=== PATIENT | female | born 1945 | race African-American/Black ===

== ENCOUNTER 2020-06-07 03:58 | Inpatient (IN) | payer OTHER ==
[~2020-06-07] VITALS: Ht 167.6 cm; Wt 80.5 kg
[2020-06-07] VITALS (8 sets, daily range): BP systolic 100–122; BP diastolic 43–65
--- NOTE | ~2020-06-07 | HC ---
[facility] [place] [address] CONSULTATION Name: FRANCOIS SIMS Room #: 216- ADM IN M.R.#: [id number] Admission: 06/07/20 Attend Phys: Reed Damon MD Discharge: Date of : 47 Report #: [id number] THIS REPORT FOR: cc: FREDDY HANNON MD Physician not on staff Jorge Pruitt MD ~ REASON FOR CONSULTATION: Acute kidney injury. REASON FOR PRESENTATION: Altered mental status. HISTORY OF PRESENT ILLNESS: This is obtained from the medical chart. The patient is not able to provide me with any history. The daughter brought the patient yesterday concerned about her mom's mental status. Apparently, the patient had been hospitalized in another facility about a month ago. The daughter was told that her mom had fluid overload. She spent some time in rehabilitation after that. Daughter describes similar symptoms like her prior hospitalization. She brought her to further evaluate her symptoms and she was found to have an elevated creatinine. Creatinine on arrival was 4.9. The patient carries chronic diagnosis of hypertension. She is maintained on anticoagulation for what seems to be AFib. She is also maintained on Celebrex. The patient currently is disoriented and not able to provide me with any history. She had some issues with hypotension on arrival. Creatinine has gone down from 4.9-2.9 as of this morning. PAST MEDICAL HISTORY: Reported from the medical charts: 1. Hypertension. 2. AFib. 3. Recent hospitalizations for fluid overload. REVIEW OF SYSTEMS: Unobtainable given the patient's current mental status. SOCIAL HISTORY: Unobtainable given the patient's current mental status. FAMILY HISTORY: Unobtainable given the patient's current mental status. ALLERGIES: None. LISTED MEDICATIONS: Listed amongst her medical conditions: 1. Celebrex. 2. Torsemide. 3. Metoprolol. 4. Xarelto. PHYSICAL EXAMINATION: GENERAL: She is disoriented to time, place, and person. [address] [address] CONSULTATION Name: FRANCOIS SIMS Room #: [facility] IN ..#: [id number] Admission: 06/07/20 Attend Phys: Reed Damon MD Discharge: Date of : 47 Report #: [id number] VITAL SIGNS: Temperature 36.6, pulse rate is 52, respiratory rate is 16, blood pressure is 118/54. HEAD AND NECK: No jugular venous distention. CHEST: Decreased air entry bilaterally. CARDIOVASCULAR: No rub detected. ABDOMEN: Soft, nontender. LOWER EXTREMITIES: No edema. LABORATORY DATA: Hemoglobin 9.5, platelets 91,000. Sodium 146, potassium 5.0, chloride is 116, carbon dioxide is 22, BUN is down from 97-71. Creatinine is down from 4.9-2.9. DIAGNOSTIC DATA: Head MRI revealed no evidence of acute issues with chronic changes. ASSESSMENT, IMPRESSION AND PLAN: 1. Acute kidney injury, multifactorial due to hypotension, nonsteroidal anti-inflammatory medications, diuresis, bradycardia. 2. Altered mental status. 3. The patient's creatinine is already on the improvement chart. Continue with IV fluid. 4. Reformulate her IV fluid. 5. Discontinue all offending agents. 6. Continue to watch volume status. 7. Continue to watch electrolytes and daily creatinine values. 8. No further NSAIDs. By: [id number] Jorge Pruitt MD /nt
[2020-06-07] MEDS ORDERED: CELEXA 20 MG TA20 MG PO (04:07)
[2020-06-07] MEDS ORDERED: CELECOXIB100 MG PO (04:08)
[2020-06-07] MEDS ORDERED: FERROUS SULFAT325 MG PO (04:08)
[2020-06-07] MEDS ORDERED: XARELTO15 MG PO (04:09)
[2020-06-07] MEDS ORDERED: DEMADEX20 MG PO (04:09)
[2020-06-07] MEDS ORDERED: TOPROL XL100 MG PO (04:10)
[2020-06-07] MEDS ORDERED: PROTONIX40 M4 (04:18)
--- NOTE | 2020-06-07 04:45 | NUR ---
MEDICATIONS RETURNED TO DAUGHTER
[2020-06-07 04:51] LABS: ABSOLUTE NEUTROPHILS 2.6 thou/uL (1.4-8.2); BASOPHILS 0.2 % (0.0-2.0); EOSINOPHILS 7.3 % (0.0-3.0); HEMATOCRIT 35.6 % (37.0-47.0); HEMOGLOBIN 11.4 gm/dL (12.0-15.0); LYMPHOCYTES 31.4 % (24.0-44.0); MCH 30.8 pg (26.0-34.0); MCHC 31.9 g/dL (28.0-37.0); MCV 96.6 fL (80.0-100.0); MONOCYTES 11.6 % (1.0-8.0); PLATELET COUNT 133 thou/uL (150-400); POLYS 49.5 % (36.0-66.0); RBC 3.69 mil/uL (4.20-5.00); RDW 16.2 % (10.5-14.5); WBC 5.2 thou/uL (4.0-11.0)
[2020-06-07 05:00] LABS: ANION GAP 8 mmol/L (7-16); BUN 97 mg/dL (7-18); CALCIUM 9.2 mg/dL (8.5-10.1); CHLORIDE 109 mmol/L (98-107); CO2 25 mmol/L (21-32); CREATININE 4.9 mg/dL (0.6-1.0); GLUCOSE 101 mg/dL (74-106); SODIUM 142 mmol/L (136-145)
[2020-06-07 05:06] LABS: ALBUMIN 2.7 g/dL (3.4-5.0); DIRECT BILIRUBIN 0.2 mg/dL (<0.1-0.2); LIPASE 637 U/L (73-393); SGOT 34 U/L (15-37); SGPT 21 U/L (30-65); TOTAL BILIRUBIN 0.5 mg/dL (0.2-1.0); TOTAL PROTEIN 6.7 g/dL (6.4-8.2); TROPONIN-I <0.06 ng/mL (<0.06)
[2020-06-07 05:12] LABS: URINE BILIRUBIN NEGATIVE (Negative); URINE BLOOD NEGATIVE (Negative); URINE CLARITY SL CLOUDY; URINE COLOR YELLOW; URINE GLUCOSE-RANDOM* NEGATIVE (Negative); URINE KETONES NEGATIVE (Negative); URINE LEUKOCYTES-REFLEX TRACE (Negative); URINE NITRITE-REFLEX NEGATIVE (Negative); URINE PROTEIN (DIPSTICK) NEGATIVE (Negative); URINE SPECIFIC GRAVITY 1.015 (1.005-1.035); URINE UROBILINOGEN 0.2 E.U./dl (0.2-1.0)
--- NOTE | 2020-06-07 07:13 | NUR ---
Called to give report, trouble locater reported all RNs are in pt's rooms getting am report Tried again, no answer
--- NOTE | 2020-06-07 07:45 | EKG ---
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1945 Requested By: Aurea Shabazz Order Number: [id number] MD: Michael Cummins Measurements Intervals [place] Rate: 59 P: 18 NE: 177 QRS: -47 QRSD: 85 T: 26 QT: 452 QTc: 448 Interpretive Statements Sinus rhythm Inferior infarct, old Poor R wave progression Baseline wander in lead(s) V3 No previous ECG available for comparison Electronically Signed On 06-07-2020 7:45:42 HIV/AIDS CARE NURSE by Michael Cummins [email or web address] <ELECTRONICALLY SIGNED> By: Michael Cummins MD, FAC 06/07/20 0745 0407 0407 Michael Cummins MD, [facility] /EPI
[2020-06-07 07:58] LABS: AMP/METHAMP Negative (Negative); BARBITURATES Negative (Negative); BENZODIAZEPINES Negative (Negative); COCAINE Negative (Negative); METHADONE Negative (Negative); OPIATES Negative (Negative); PCP Negative (Negative)
[2020-06-07 09:24] LABS: TSH 0.885 uIU/mL (0.358-3.740)
--- NOTE | 2020-06-07 11:42 | NUR ---
ASSUMED CARE AT 830. PT IS AX0 X 1. PT ONLY KNOWS SELF. PT CAN LISTEN TO COMMANDS BUT NEEDS HELP. PT IS ON BEDPAN CURRENTLY AND HAVING LIQUID DIARRHEA AFTER GIVING LAXATIVE MEDICATION. PT HAS SODIUM CHLORIDE GOING ON R. AC IV AT 75 ML/ HR. PT IS TOLERATING WELL. FALL PRECAUTION. CALL LIGHT WITHIN REACH. FAXED MEDICAL RECORDS FORM TO [facility] TO RECEIVE REPORTS. STILL WAITING FOR RECORDS. DIET: HEART HEALTHY. VSS. PT COMPLAINS OF RIGHT LEG PAIN BUT DENIES NAUSEA, VOMITTING, AND SOA. SPOKE TO DAUGHTER AND SHE HELPED WITH PT PAST MEDICAL HISTORY. PT HAS WOUND ON BUTTOCK UPPER CUT. WOUND HAS BEEN DOCUMENTED AND CONSULT ORDER FOR WOUND COORDINATOR. PT DOES NOT HAVE MUCH OF APPETITE WELL.
--- NOTE | 2020-06-07 13:16 | NUR ---
ASSESSMENT: CM REVIEWED CHART AND SPOKE WITH PATIENTS DAUGHTER JONAS. PT WAS ADMITTED DUE TO ACUTE ON CHRONIC RENAL FAILURE/ENCEPHALOPATHY. PER PTS DAUGHTER PT WAS JUST HOSPITALIZED 2WKS AGO IN [place], [place] FOR FLUID OVERLOAD AND THEN WENT TO [facility] IN [facility]. PT THEN WAS DISCHARGED THIS PAST FRIDAY AND WENT HOME WITH HER DAUGHTER JONAS. SHE REPORTS HOME HEALTH WAS NOT SET UP. PT HAS A WALKER SHE USES FOR AMBULATION. PT/OT WILL EVALUATE PATIENT TO HELP ASSIST WITH DISCHARGE PLANNING. EEG WAS ALSO ORDERED AND WOUND CARE HAS BEEN CONSULTED. CM WILL CONTINUE TO FOLLOW TO ASSIST NEEDED.
--- NOTE | 2020-06-07 16:42 | NUR ---
ASSUMED CARE AT 1415 ALER AND ORIENTD, BUT FOGETFUL. NIHS 2, VSS AND AFEBRILE. HEPARIN INITIATED PER ORDERS, AND WHITNEY CONTNUE WITH POC.
[2020-06-08] VITALS (8 sets, daily range): BP systolic 107–144; BP diastolic 46–66
[2020-06-08 05:47] LABS: ABSOLUTE NEUTROPHILS 1.8 thou/uL (1.4-8.2); BASOPHILS 0.3 % (0.0-2.0); EOSINOPHILS 7.3 % (0.0-3.0); HEMATOCRIT 29.1 % (37.0-47.0); HEMOGLOBIN 9.5 gm/dL (12.0-15.0); LYMPHOCYTES 36.7 % (24.0-44.0); MCH 31.7 pg (26.0-34.0); MCHC 32.6 g/dL (28.0-37.0); MCV 97.3 fL (80.0-100.0); MONOCYTES 10.7 % (1.0-8.0); PLATELET COUNT 91 thou/uL (150-400); RBC 2.99 mil/uL (4.20-5.00); RDW 16.5 % (10.5-14.5); WBC 3.9 thou/uL (4.0-11.0)
[2020-06-08 05:55] LABS: ALBUMIN 2.2 g/dL (3.4-5.0); CALCIUM 8.6 mg/dL (8.5-10.1); MAGNESIUM 2.4 mg/dL (1.8-2.4)
[2020-06-08 06:08] LABS: CREATININE 2.9 mg/dL (0.6-1.0)
[2020-06-08] MEDS ORDERED: SPIRONOLACTONE50 MG PO (15:45)
[2020-06-08] MEDS ORDERED: XARELTO15 MG PO (15:46)
[2020-06-09 03:31] VITALS: BP 111/42
[2020-06-09 06:10] LABS: ALBUMIN 2.2 g/dL (3.4-5.0); CALCIUM 8.7 mg/dL (8.5-10.1); CREATININE 2.1 mg/dL (0.6-1.0); PHOSPHORUS 3.4 mg/dL (2.5-4.9); POTASSIUM 4.5 mmol/L (3.5-5.1)
[2020-06-09 07:55] VITALS: BP 120/77
[2020-06-09 09:33] LABS: HEMATOCRIT 29.4 % (37.0-47.0); HEMOGLOBIN 9.5 gm/dL (12.0-15.0); MCH 31.5 pg (26.0-34.0); MCHC 32.2 g/dL (28.0-37.0); MCV 97.8 fL (80.0-100.0); RBC 3.01 mil/uL (4.20-5.00); RDW 16.8 % (10.5-14.5); WBC 3.4 thou/uL (4.0-11.0)
--- NOTE | 2020-06-09 10:43 | NUR ---
WOUND CARE F/U; THE WOUND IS STABLE AT THIS TIME AND NO CHANGES ARE NECCESSARY. WE WILL CONTINUE TO F/U WITH THIS PATIENT.
[2020-06-09 11:10] VITALS: BP 132/63
[2020-06-09 12:48] LABS: INR 1.1; PROTIME 11.7 Seconds (9.3-11.4)
[2020-06-09 12:52] LABS: APTT 166.2 Seconds (24.5-32.8)
--- NOTE | 2020-06-09 12:56 | EEG ---
[facility] [place] [address] ELECTROENCEPHALOGRAM Name: AWILDA SIMSLETICIA Room #: 216-[facility] IN M.R.#: [id number] Admission: 06/07/20 Attend Phys: Reed Damon MD Discharge: Date of : 47 Report #: [id number] THIS REPORT FOR: //name// CC: FREDDY Damon Physician staff DATE OF SERVICE: 06/07/2020 This patient is being evaluated for altered mental status and for the possibility of seizures. The EEG is masked by a lot of muscle artifact as the patient is unable to cooperate. That makes the interpretation of this EEG extremely difficult. The best I can tell the patient's background activity is about 15 microvolt, sometime it looks like it goes somewhat lower than that and that may be drowsiness. Photic stimulation is unremarkable. IMPRESSION: Suboptimal EEG as the patient is not able to cooperate and there is a lot of artifact. The best I can tell, it does not appear to be showing any epileptiform activity. It does show slowing on both sides. That is a nonspecific finding, which can occur with encephalopathy, effect of psychotropic medication, dementia, etc. Clinical correlation is recommended. <ELECTRONICALLY SIGNED> By: Jean Claude Marrero MD 06/09/20 1256 1807 1818 Jean Claude Marrero MD /nt
[2020-06-09 16:25] VITALS: BP 111/44
--- NOTE | 2020-06-09 17:47 | NUR ---
Visited with pt at bedside. She indicates she feels weak and would be open to hh f/u at dc at her dtr's home. She may be open to SNF stay again but wants to discuss with her dtr.Dtr here visiting this evening and they will discuss and f/u with cm on their preference.
[2020-06-09 18:00] VITALS: BP 126/60
--- NOTE | 2020-06-09 19:24 | NUR ---
PT TRANSFERED TO UNIT AT 1814. RECEIVED REPORT FROM MIRA ROSAS PRIOR TO TRANSFER. DAUGHTER AT THE BEDSIDE AT THIS TIME. PT ASSISTED INTO BED. ADMISSION VIATL SIGNS COMPLETED. PT REPORTS PAIN AND WAS ADMINISTERED TYLENOL, REPORTED NO RELIEF AT CHANGE OF SHIFT. FALL PRECAUTIONS IN PLACE AND NURSING WILL CONTINUE TO MONITOR.
[2020-06-10 02:45] VITALS: BP 126/66
--- NOTE | 2020-06-10 03:14 | NUR ---
ASSUMED PT CARE AT SHIFT CHANGE. PT IS ALERT AND ORIENTED X4. VSS. PT HAS A SLOW RESPONSE. PT IS INCONTINENT B&B BUT IT SEEMS TO BE BY CHOICE. PT STATES THAT SHE WOULD PREFER NOT TO USE THE BEDPAN/ BSC. COMPLETE BED CHANGE DONE. PT IS ON ROOM AIR. PERFORMED A WOUND CLEANING ON HER BOTTOM IN BETWEEN HER BUTTOCKS. APPLIED ZGAURD. PT STATES THAT HER KNEES HURT AND PAIN IS ALWAYS THERE. FREQ ROUNDS. WILL CONTINUE TO MONITOR.
[2020-06-10 06:07] LABS: ALBUMIN 2.2 g/dL (3.4-5.0); CALCIUM 8.6 mg/dL (8.5-10.1); CREATININE 1.7 mg/dL (0.6-1.0); PHOSPHORUS 2.8 mg/dL (2.5-4.9); POTASSIUM 4.9 mmol/L (3.5-5.1)
[2020-06-10 06:14] LABS: % SATURATION 32 % (20-39); IRON 66 ug/dL (50-170); TIBC 209 ug/dL (250-450)
[2020-06-10 08:16] VITALS: BP 139/66
[2020-06-10 09:33] VITALS: BP 188/113
--- NOTE | 2020-06-10 10:43 | NUR ---
ASSUMED CARE AT 0700. PT IS A&O X4 BUT SLOW OF SPEAKING. IV ON LEFT A.C IS SHOWING NO SIGNS OF REDNESS AND SWELLING OR DISCOMFORT. IV IS NOT SALINE LOCK AND RUNNING D5 0.2 NS AT 125 ML/HR. SKIN IS INTACT AND PT IS READJUSTED EVERY 2 HOURS IN BED. PT IS CURRENTLY INCONTINENT SOMETIMES BUT IS ABLE TO USE CALL LIGHT TO SAY THAT SHE HAS TO USE THE RESTROOM. PT COMPLAINS OF FATIGUE DUE TO INCONTINENCE LAST NIGHT. FALL PRECAUTION. CALL LIGHT WITHIN REACH. PT DENIES OF SOA AND DIZZINESS.
[2020-06-10 15:40] VITALS: BP 140/67
--- NOTE | 2020-06-10 16:18 | NUR ---
pt was given zguard to coccyx wound. pt is sad that she is still wetting the bed. I have talked to pt and reassure pt that it is okay and to use the call light and we will help her.
[2020-06-10 19:20] VITALS: BP 131/60
--- NOTE | 2020-06-11 00:12 | NUR ---
PATIENT ALERT AND ORIENTED X4. DAUGHTER AT BEDSIDE AT BEGINNING OF SHIFT. PATIENT COOPERATIVE WITH CARE. C/O PAIN AND GIVEN TYLENOL WITH GOOD RESULTS. ALSO GIVEN MELATONIN FOR ASSIST WITH SLEEP WHICH HAS BEEN EFFECTIVE. IVF INFUSING W/O COMPLICATION. EXTERNAL CATHETER WORKING OFF AND ON DUE TO POSITION. WILL MONITOR.
[2020-06-11 07:09] VITALS: BP 135/65
--- NOTE | 2020-06-11 09:18 | NUR ---
ASSUMED CARE AT 0700. PT IS A&O X4 BUT IS SOFT SPOKEN. PT FELT BAD TODAY BECAUSE SHE DOES NOT LIKE WETTING THE BED. I HELPED REASSSURE PT THAT IT IS OKAY AND WE ARE HERE TO HELP. PT TOLD ME THIS AM THAT SHE HAS BEEN SPITTING/COUGHING UP BLOOD AND SHOWED ME. I HAVE SPOKEN WITH LOUISA AND LOUISA HOLDED ASPIRIN AND XARLETO UNTIL FURTHER NOTICE DUE TO THE COUGHING UP BLOOD. LOUISA HAS ORDERED A CHEST X RAY AND CURRENTLY PENDING WITH RESULTS. VSS. ADMINISTERED Z GUARD TO PT WOUND. IV L. AC IS INTACT AND SHOWS NO SIGNS OF REDNESS OR SWELLING. CALL LIGHT WITHIN REACH. FALL PRECAUTION. SHE CURRENTLY HAS D5 0.22 RUNNING THROUGH IV AT 125 ML/HR. PT DENIES ANY PAIN, SOA, DIZZINESS, N/V/D. WILL CONTINUE TO MONITOR. WE HAVE PUT A EXTERNAL CATHETER ON PT BUT IT DID NOT WORK. WE HAVE TRIED 2 TIMES AND IT DID NOT WORK.
[2020-06-11 09:54] LABS: HEMATOCRIT 29.3 % (37.0-47.0); HEMOGLOBIN 9.5 gm/dL (12.0-15.0); MCH 31.4 pg (26.0-34.0); MCHC 32.3 g/dL (28.0-37.0); MCV 97.3 fL (80.0-100.0); RBC 3.01 mil/uL (4.20-5.00); RDW 16.5 % (10.5-14.5); WBC 2.5 thou/uL (4.0-11.0)
[2020-06-11 10:14] LABS: ALBUMIN 2.2 g/dL (3.4-5.0); CALCIUM 8.7 mg/dL (8.5-10.1); CREATININE 1.5 mg/dL (0.6-1.0); MAGNESIUM 1.7 mg/dL (1.8-2.4); POTASSIUM 4.7 mmol/L (3.5-5.1); TOTAL BILIRUBIN 0.4 mg/dL (0.2-1.0); TOTAL PROTEIN 5.7 g/dL (6.4-8.2)
[2020-06-11 11:53] LABS: ABSOLUTE NEUTROPHILS 1.4 thou/uL (1.4-8.2)
[2020-06-11 11:55] LABS: ANISOCYTOSIS 1+
[2020-06-11 12:26] LABS: PLATELET COUNT 73 thou/uL (150-400)
[2020-06-11 15:22] VITALS: BP 127/62
[2020-06-11 19:03] VITALS: BP 123/59
[2020-06-12 04:12] VITALS: BP 106/45
[2020-06-12 07:15] VITALS: BP 120/52
--- NOTE | 2020-06-12 08:11 | HC ---
[facility] [place] [address] CONSULTATION Name: FRANCOIS SIMS Room #: 437-P ADM IN M.R.#: [id number] Admission: 06/07/20 Attend Phys: Reed Damon MD Discharge: Date of : 47 Report #: [id number] THIS REPORT FOR: cc: FREDDY HANNON MD Physician not on staff Blu Frausto MD ~ REASON FOR CONSULTATION: Pancytopenia. HISTORY OF PRESENT ILLNESS: The patient is a 74-year-old female who is a questionable historian and also reviewed records from [facility] in [place], [place]. Chart mentions the patient was brought to the hospital because of possible fluid overload and was thought to have some renal troubles. It sounds like she according them had been in the hospital, which agrees up until about 4 weeks ago, then a first visit at a rehab hospital until about a week ago. Per the daughter, it should like the patient has not had any recent fevers, chills, shortness of air, common cough, nausea, vomiting, diarrhea, melena, hematochezia at least since a week ago. The patient was thought to be a little more confused than usual. PAST MEDICAL HISTORY: After reviewing the chart is notable for history of hepatitis C with cirrhosis, hypertension, atrial fibrillation, chronic kidney disease, obstructive sleep apnea and obesity and also note that at the outside hospital a month ago, the patient had a platelet count of 97 with a white count of 4.8, hemoglobin of 10 with an MCV of 100. CURRENT MEDICATIONS: Include cyanocobalamin 1000 mcg daily p.o., diclofenac 1 gram t.i.d. topically, heparin per protocol, Tylenol p.r.n., IV fluids, folic acid 1 mg daily, aspirin 81 mg daily, pantoprazole 40 daily, heparin on a drip, rivaroxaban 15 mg with dinner once a day, MiraLax daily, nitroglycerin tablets p.r.n., Zofran p.r.n. The patient receiving vitamin B12 shots IM x 5 doses. 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 Currently lives with her daughter in [place], [place], not currently smoking or drinking alcohol or any street drugs. PHYSICAL EXAMINATION: GENERAL: The patient appears her stated age. She is a female in a medical, surgical bed, slightly fuzzy and answering questions, but pleasant. VITAL SIGNS: Recent height is 5 feet 6 inches, 167.6 cm; weight one place 200 pounds, another place 177.5 pounds that would be 90.7 or 80.5 kilograms. Recent vitals include a blood pressure 111/42, O2 sat 100%, respirations 18, pulse 55, temperature recently afebrile at 97.7, looks like she has been afebrile since being here, though [place] a [place] 99[place] [address] CONSULTATION Name: FRANCOIS SIMS Room #: 437-P [facility] IN M.R.#: [id number] Admission: 06/07/20 Attend Phys: Reed Damon MD Discharge: Date of : 47 Report #: [id number] HEENT: Face appears to be symmetrical. NEUROLOGIC: Speech and thought pattern appear to be normal, but slightly slow to this observer, but this is first time examining her. LUNGS: Appear to be clear with some very soft rhonchi centrally that clear with clear in her throat. LYMPHATICS: No enlarged lymph nodes in the supraclavicular, cervical, axillary or inguinal region. ABDOMEN: Slightly obese, does not appear to be tender. No masses noted. EXTREMITIES: May have some trace edema. LABORATORY DATA: Here at [facility] notable for BUN of 48, creatinine 2.1. Liver functions normal. Alkaline phosphatase 68. Note, total bilirubin was 0.5. Ammonia level was 131, albumin 2.2. Alcohol less than 10. Drug screen negative. White count 3.9, hemoglobin 9.5, MCV 97.3, platelet count 91. Differential nonacute. Percentage monocytes slightly elevated. TSH 0.885. Folate 17, normal. Vitamin B12 117, low. 25-hydroxy vitamin D 25.9, low. UA nonacute. IMAGING: This admit includes an MRI of the head that is mild generalized parenchymal volume loss and moderate chronic small vessel ischemic changes without acute intracranial abnormality. Ultrasound renal showed simple cyst arising from the left kidney. Kidneys are small in size consistent with chronic medical renal disease, no hydronephrosis or obstruction. ASSESSMENT AND PLAN: 1. Cytopenia, chronic in nature, may be related to B12. Agree with replacement. We will also check iron panel. Thrombocytopenia may be partly related to underlying liver disease. Note that outside hospital with a CT chest on 05/06/2020 mentioned a nodule on liver. There is also an ultrasound of abdomen on 05/07/2020 at the outside hospital mentioned coarse nodular architecture of the liver. 2. B12 deficiency, level was 117. The patient is receiving subcutaneous B12 and oral, should continue lifelong. 3. History report of hepatitis C and cirrhosis. Defer to others, but this may be contributing to her thrombocytopenia. 4. Encephalopathy, may be related to liver dysfunction. Note, ammonia was elevated. Defer use of lactulose to others. 5. Atrial fibrillation. Defer rate management to others. 6. Hypertension. Meds per others. 7. Chronic kidney disease, monitored medication use and weight and fluid, but mostly per others. [facility] [address] [place] [address] CONSULTATION Name: FRANCOIS SIMS Room #: 437-P ADM IN M.R.#: [id number] Admission: 06/07/20 Attend Phys: Reed Damon MD Discharge: Date of : 47 Report #: [id number] 8. History of obstructive sleep apnea on the chart. Management per others. 9. Obesity. Management per others. <ELECTRONICALLY SIGNED> By: Blu Frausto MD 06/12/20 0811 0816 0120 Blu Frausto MD /nt
--- NOTE | 2020-06-12 09:19 | NUR ---
WOUND F/U; THE PATIENTS COCCYX IS HEALED. THE PATIENT CAN STAND AND TURN HERSELF IN BED. THE PATIENTS DIETARY INTAKE IS WNL. THE PATIENT IS ABLE TO UNDERSTAND AND ANSWERS APPROPRIATLY WELL ASKING QUESTIONS. RECOMMENDATIONS; 1-WOUND CARE WILL SIGN OFF 2-CONTINUE CURRENT ORDERS DISCUSSED WITH RN
--- NOTE | 2020-06-12 10:48 | NUR ---
ASSUMED CARE AT 0700. PT IS A&O X4. PT IS DOING WELL WITH USING EXTERNAL FEMALE CATHETHER. IV ON R. AC SHOWS NO SIGNS OF SWELLING OR REDNESS. PT WILL BE DOING A COVID TESTING. WILL CONTINUE TO MONITOR I&O. PT IS HAVING ADEQUATE NUTRITION. VSS. PT DENIES ANY PAIN, SOA, DIZZINESS, N/V. FALL PRECAUTION. CALL LIGHT WITHIN REACH. SCD HOSE ARE IN PLACE. STILL CURRENTLY HOLDING ASIPIRIN AND XARELTO DUE TO DOCTOR ORDERS.
[2020-06-12] MEDS ORDERED: VITAMIN D325 MC1 PO (10:59)
[2020-06-12] MEDS ORDERED: FOLIC ACID1 MG PO (10:59)
[2020-06-12] MEDS ORDERED: B-12500 MCG PO (10:59)
[2020-06-12] MEDS ORDERED: LACTULOSE20 GM/30 M PO (10:59)
--- NOTE | 2020-06-12 14:04 | NUR ---
ON-GOING ASSESSMENT: TWILA REVIEWED CHART AND SPOKE WITH PTS DAUGHTER THIS AM TO INFORM HER ON RECOMMENDATION FOR SNF. SHE REPORTS SHE WILL REVIEW SNF LIST BUT WANTS SOMEWHERE IN AND NOT [place] LIKE THE OTHER SNF SHE WAS AT. CM LEFT A SNF LIST AT THE BEDSIDE FOR DAUGHTER TO REVIEW SHE STATES SHE WAS COMING TO VISIT PT. TWILA AGAIN REACHED OUT TO DAUGHTER AROUND 1400 WHO REPORTS SHE STILL HAS NOT HAD A CHANCE TO REVIEW BUT IT COMING NOW. CM AGAIN DISCUSSED PT IS MEDICALLY STABLE TO DISCHARGE TO SNF PENDING PLACEMENT AND RESULT OF COVID TESTING. DAUGHTER REPORTS SHE WILL REVIEW LIST AND GET BACK TO CM. CM WILL CONTINUE TO FOLLOW.
[2020-06-12 15:34] VITALS: BP 121/47
[2020-06-12 20:29] VITALS: BP 101/43
[2020-06-13 03:59] VITALS: BP 116/51
--- NOTE | 2020-06-13 04:40 | NUR ---
ASSESSED PT. A&OX4 UP WITH ASSISTX1 TO BSC. C/O EXTREMITY PAIN. DICLOFENAC CREAM APPLIED. IV INTACT AND SL. MELATONIN GIVEN FOR SLEEP. FALL PREC IN PLACE AND CALL LIGHT AT REACH WILL CONT TO MONITOR.
[2020-06-13 08:08] VITALS: BP 116/47
--- NOTE | 2020-06-13 08:36 | NUR ---
ON-GOING ASSESSMENT: TWILA REVIEWED CHART AND SPOKE WITH PTS DAUGHTER JONAS ABOUT SNF OPTIONS. SHE WANTED REFERRAL SENT TO [facility]. TWILA REACHED OUT TO THE LIASON AT [facility] WHO REPORTS THEY ARE NOT ACCEPTING NEW ADMISSIONS AT THIS TIME. TWILA REACHED OUT TO DAUGHTER AGAIN REQUESTING ANOTHER SNF OPTION.
--- NOTE | 2020-06-13 13:25 | NUR ---
ASSUMED PT CARE THIS AM. PT VSS, A&OX4. PT COMPLAINS OF NO PAIN. PT COOPERATIVE WITH STAFF, CALLS APPROPRIATELY WHEN NEEDED. PT TAKING MEDS WITH NO COMPLAINTS. PT ON ZAHRA MATTRESS. PT UP TO BEDSIDE COMMODE.
[2020-06-13 16:24] VITALS: BP 120/50
[2020-06-13 20:27] VITALS: BP 128/66
--- NOTE | 2020-06-14 05:15 | NUR ---
PT IS ALERT AND ORIENTED. SHE CALLS FOR ASSISTANCE. SHE REQUIRES EXTRA TIME TO GET UP TO BSC.SHE IS VOIDING OKAY AND HAD A BM THIS SHIFT.AFEBRILE.SHE HAS A CONGESTED COUGH. SHE DENIES SOA OR SORE THROAT. REMAINS AFEBRILE.FALL PREC IN PLACE. WILL CONTINUE WITH POC.
[2020-06-14 06:26] VITALS: BP 118/69
[2020-06-14 07:41] VITALS: BP 128/45
--- NOTE | 2020-06-14 09:47 | NUR ---
ASSUMED PT CARE THIS AM. PT VSS, A&OX4. PT HAS NO COMPLAINTS OF PAIN. NEW DICLOFENAC OINTMENT ORDERED NONE IS IN ROOM OR IN PATIENTS BIN IN [facility]. PT REPORTED THAT SHE DOES NOT KNOW WHERE IT WENT. IV PATENT, SALINE LOCKED. PT REPORTING A NON-PRODUCTIVE COUGH. ON ZAHRA MATTRESS. PT TOOK MEDS WITHOUT COMPLAINT. FLUIDS ENCOURAGED.
--- NOTE | 2020-06-14 14:17 | NUR ---
ON-GOING ASSESSMENT: PT IS MEDICALLY STABLE TO DISCHARGE TO SNF. TWILA SPOKE WITH LIASON FROM [facility] WHERE DAUGHTER WANTS PT TO GO AND THEY CAN ACCEPT HER BUT WILL NOT HAVE A BED OPEN UNTIL FRIDAY. CM DISCUSSED THIS WITH DAUGHTER BUT PT IS MEDICALLY STABLE TO DISCHARGE AND ASKED HER TO REVIEW OTHER FACILITIES. REFERRAL WAS SENT TO [facility] WHO CAN ACCEPT BUT AFTER DAUGHTER FURTHER REVIEWED SHE DOES NOT WANT PT TO GO THERE. TWILA DISCUSSED WITH ATTENDING WELL CM DIRECTOR, DAUGHTER REQUEST SHE WAIT UNTIL FRIDAY TO DISCHARGE TO [facility] SHE IS ONLY COMFORTABLE WITH THIS SNF. PT WILL DISCHARGE FRIDAY TO [facility]. ON FRIDAY CONTACT SEGUNDO AUSTIN LIASON AT [phone] AND SHE WILL FACILITATE DISCHARGE WELL ARRANGTING TRAENSPORTATION AND PROVIDE THE FAX NUMBER FOR ORDERS. CHART COPY WILL NEED TO BE SENT WITH PATIENT. CM FAXED FACILITY HER NEGATIVE COVID TEST. CONTACT JONAS HER DAUGHTER AT TIME OF DISCHARGE. TWILA SPOKE WITH MESSI AT [phone] WHO REPORTS FACILITY SHOULD NOT NEED AUTH PRIOR TO ACCEPTING THERE IS A WAIVER DUE TO PANDEMIC. CM NOTIFIED LIASON IN ADMISSION. PLAN IS FRIDAY TO [facility] SNF.
--- NOTE | 2020-06-14 15:32 | NUR ---
ON-GOING ASSESSMENT: PT IS MEDICALLY STABLE TO DISCHARGE TO SNF. CM SPOKE WITH LIASON FROM [facility] WHERE DAUGHTER WANTS PT TO GO AND THEY CAN ACCEPT HER BUT WILL NOT HAVE A BED OPEN UNTIL FRIDAY. CM DISCUSSED THIS WITH DAUGHTER BUT PT IS MEDICALLY STABLE TO DISCHARGE AND ASKED HER TO REVIEW OTHER FACILITIES. REFERRAL WAS SENT TO [facility] WHO CAN ACCEPT BUT AFTER DAUGHTER FURTHER REVIEWED SHE DOES NOT WANT PT TO GO THERE. CM DISCUSSED WITH ATTENDING WELL CM DIRECTOR, DAUGHTER REQUEST SHE WAIT UNTIL FRIDAY TO DISCHARGE TO [facility] SHE IS ONLY COMFORTABLE WITH THIS SNF. PT WILL DISCHARGE FRIDAY TO [facility]. CM PROVDED [facility] UPDATED CLINICAL INCLUDING PT/OT EVALS AND PROGRESS NOTES TO OBTAIN AUTH FOR FRIDAY. ON FRIDAY CONTACT SEGUNDO AUSTIN LIASON AT [phone] AND SHE WILL FACILITATE DISCHARGE WELL ARRANGING TRAENSPORTATION AND PROVIDE THE FAX NUMBER FOR ORDERS WHEN SHE HAS AUTH AND IS NOTIFIED OF DISCHARGE BY [facility]. CHART COPY WILL NEED TO BE SENT WITH PATIENT. CM FAXED FACILITY HER NEGATIVE COVID TEST. CONTACT JONAS HER DAUGHTER AT TIME OF DISCHARGE.
[2020-06-14 16:44] VITALS: BP 121/50
[2020-06-14 20:03] VITALS: BP 135/63
--- NOTE | 2020-06-15 01:27 | NUR ---
ASSUMED PT CARE AT SHIFT CHANGE. A&OX4. VSS. PT IS IN THE CHAIR AT SHIFT CHANGE. PT IS A SBA WITH THE GAITBELT AND THE WALKER. APPLIED THE TOPICAL CREAM TO HER KNEES SCHEDULED. SHE STATES THAT SHE HAS GOTTEN RELIEF FROM THIS. PT TAKES SCHEDULED MEDICAITON. PT HAS TWO IV - ON IN THE RIGHT AC AND THE RIGHT FOREARM. PT IS LOOKING FORWARD TO DISCHARGING. PT DOES NOT COMPLAIN OF ANY PAIN. PT HAD A BM TODAY. HOURLY ROUNDS PERFORMED. WILL CONTINUE TO MONITOR.
[2020-06-15 05:53] LABS: HEMATOCRIT 26.8 % (37.0-47.0); HEMOGLOBIN 8.8 gm/dL (12.0-15.0); MCH 31.6 pg (26.0-34.0); MCHC 32.6 g/dL (28.0-37.0); MCV 96.8 fL (80.0-100.0); PLATELET COUNT 73 thou/uL (150-400); RBC 2.77 mil/uL (4.20-5.00); RDW 16.2 % (10.5-14.5); WBC 3.3 thou/uL (4.0-11.0)
[2020-06-15 05:58] LABS: CALCIUM 9.1 mg/dL (8.5-10.1); CREATININE 1.5 mg/dL (0.6-1.0); POTASSIUM 4.6 mmol/L (3.5-5.1)
[2020-06-15 06:22] VITALS: BP 133/64
[2020-06-15 07:45] VITALS: BP 138/71
[2020-06-15 09:57] LABS: ABSOLUTE NEUTROPHILS 1.5 thou/uL (1.4-8.2); PLATELET ESTIMATE DECREASED
--- NOTE | 2020-06-15 14:23 | NUR ---
ASSUMED CARE AT 0700. PATIENT IS ALERT AND ORIENTED X4. PATIENT BARRERA'S, MOTORCYCLE FABRICATOR ARE EQUAL. LUNGS ARE CLEAR. ABD IS SOFT WITH BSX4. PATIENT IS SBA TO BSC. PATIENT HAS S.L. IN HER RIGHT AC. AND FORARM. PATIENT HAS NEGATIVE COVID ON CHART. PLAN D/C FOR PLACEMENT ON FRIDAY. FALL AND SAFETY PROTOCOLS IN PLACE. DENIES PAIN. CONTINUES TO PROGRESS TOWARDS D/C GOALS. WILL CONTINUE TO MONITER.
[2020-06-15 15:20] VITALS: BP 138/58
[2020-06-15 21:25] VITALS: BP 116/62
[2020-06-16 04:57] VITALS: BP 127/68
--- NOTE | 2020-06-16 05:03 | NUR ---
PATIENT ALERT AND ORIENTED X4. UP IN CHAIR AT CHANGE OF SHIFT. DENIES PAIN. HOWEVER, C/O COUGH AND WANTS CEPACOL DROPS. SMALL BM DURING THE NIGHT. COOPERATIVE WITH CARE. DENIES PAIN. RESTING QUIETLY WILL MONITOR.
[2020-06-16 09:15] VITALS: BP 127/62
[2020-06-16] MEDS ORDERED: XIFAXAN550 MG PO (10:21)
[2020-06-16] MEDS ORDERED: IPRAT-ALBUT 0.5-3 ML INH (10:21)
[2020-06-16] MEDS ORDERED: VOLTAREN GEL 1100 G1 TOP (10:21)
[2020-06-16] MEDS ORDERED: COLACE100 MG PO (10:21)
[2020-06-16] MEDS ORDERED: METOPROLOL TART25 MG PO (10:21)
--- NOTE | 2020-06-16 10:47 | NUR ---
ASSUMED CARE AT 0700. PT IS A&0X4. IV ON RIGHT FA IS INTACT AND SHOWS NO SIGNS OF SWELLING OR REDNESS. Z GUARD WAS APPLIED ON CEASE OF UPPER BUTTOCK. FALL PRECAUTION. CALL LIGHT WITHIN REACH. GREAT APPETITE AFTER CUSTOMERIZING FOOD ORDERS. VSS. RENAL DIET. PT DENIES ANY PAIN, SOA, VOMITTING, NAUSEA, DIARRHEA. RA.
--- NOTE | 2020-06-16 12:06 | NUR ---
CM REVIEWED CAHRT AND SPOKE WITH CARE TEAM. IT WAS INDICATED THAT PT WAS MEDICALLY STABLE TO DC TO [facility] THIS DAY. DC DOOR REPAIRMAN CONTACTED TONY AT [phone]. IT WAS INDICATED THAT THE FACILITY DIDN'T HAVE AN OPEN BED TO ACCEPT PT THIS DAY AFTER ALL. DC DOOR REPAIRMAN WAITIGN TO HEAR IF THEY WILL BE ABLE TO ACCEPT OVER THE WEEKEND. CHART COPY ORDERED. FOLLOW UP PARESH ERICISON AT FOR UPDATES ON ADMISSION OVER WEEKEND. CM NOTIFIED PHYSICIAN. CONTACT JONAS HER DAUGHTER AT TIME OF DISCHARGE.
--- NOTE | 2020-06-16 12:50 | NUR ---
PT WAS TO DC TODAY TO [facility] BUT THEY DO NOT HAVE BED AVAILABLE BUT WILL HAVE ONE TOMORROW. DC ORDERS/SUMMARY ALREADY FAXED TO FACILITY SPOKE WITH SEGUNDO IN ADM SHE WILL SET UP TRANSPORT CALL [phone] AND TO GIVE REPORT.
[2020-06-16 15:54] VITALS: BP 129/50
--- NOTE | 2020-06-16 16:50 | NUR ---
assumed care at 1610. pt is a&o 1-2. pt can only answer with yes or no but mainly yes for anything. She could not answer the new admit paperwork nor sign the consents form. pt says " yes but wouldn't hold the pen to actually sign the consent form. pt abd is distended and hard. hypoactive bm. lin is intact and no signs of redness or swelling on skin. IV is intact and shows no signs of swelling or redness. fall precaution. call light within reach. I have called her aunt and her mom. her aunt wanted me to call her mother as she would have more information for me. however, her mother did not answer. Will try again later to finish admin by waiting on mother to call back.
[2020-06-16 19:40] VITALS: BP 125/56
--- NOTE | 2020-06-16 23:45 | NUR ---
1900 ASSUMED CARE OD PT AFTER BEDSIDE REPORT, 1999 BASELINE ASSESSMENT COMPLETED. PT RESTING IN BED, SCD'S IN PLACE, FALL PRECAUTIONS IN PLACE
[2020-06-17 07:10] VITALS: BP 130/55
--- NOTE | 2020-06-17 16:12 | NUR ---
DISCHARGE PAPERS REVIEWED SIGNED AND COPY IN CHART. PT TO DISCHARGE TO [facility] REPORT WAS CALLED TO MARTHA LINDA. IV ACSESS DCD AND ALL BELONGINGS PACKED AND SENT WITH PATIENT. PT LEFT W/C VAN AT 1445. Z-GUARD CREAM SENT WITH PATIENT. PT HAD LARGE BM TODAY.
== END 2020-06-17 14:43 | DRG 441 ==
LOC: ER 03:58 → 2N 05:55 → EROBS 05:55 → 4S 08:41 → 2N 14:15 → 4S 06-09 18:02
PROVIDERS: Emergency Medicine; Hospitalist; Internal Medicine; Internal Medicine Hematology & Oncology; Nurse Practitioner; ADMIT Hospitalist; ATTEND Hospitalist
DX: K72.90 Hepatic failure, unspecified without coma (principal); N17.0 Acute kidney failure with tubular necrosis; G93.41 Metabolic encephalopathy; E43 Unspecified severe protein-calorie malnutrition; E87.0 Hyperosmolality and hypernatremia; D61.818 Other pancytopenia; R04.2 Hemoptysis; E72.20 Disorder of urea cycle metabolism, unspecified; Z20.828 Contact with and (suspected) exposure to other viral communicable diseases; I48.91 Unspecified atrial fibrillation; I12.9 Hypertensive chronic kidney disease with stage 1 through stage 4 chronic kidney disease, or unspecified chronic kidney disease; I95.9 Hypotension, unspecified; K74.60 Unspecified cirrhosis of liver; G47.33 Obstructive sleep apnea (adult) (pediatric); E66.9 Obesity, unspecified; D75.9 Disease of blood and blood-forming organs, unspecified; E53.8 Deficiency of other specified B group vitamins; F32.9 Major depressive disorder, single episode, unspecified; E86.0 Dehydration; E87.8 Other disorders of electrolyte and fluid balance, not elsewhere classified; N18.30 Chronic kidney disease, stage 3 unspecified; K21.9 Gastro-esophageal reflux disease without esophagitis; D50.9 Iron deficiency anemia, unspecified; K76.9 Liver disease, unspecified; M17.0 Bilateral primary osteoarthritis of knee; E55.9 Vitamin D deficiency, unspecified; K80.20 Calculus of gallbladder without cholecystitis without obstruction; B19.20 Unspecified viral hepatitis C without hepatic coma; Z79.1 Long term (current) use of non-steroidal anti-inflammatories (NSAID); Z68.28 Body mass index [BMI] 28.0-28.9, adult; Z79.82 Long term (current) use of aspirin; Z79.899 Other long term (current) drug therapy
CPT/HCPCS: 10102; 10797

== ENCOUNTER 2020-07-03 10:09 | Inpatient (IN) | payer OTHER ==
[~2020-07-03] VITALS: Ht 162.6 cm; Wt 80.7 kg
--- NOTE | ~2020-07-03 | EMS ---
[address] [address] EMS Patient Care Report Name: FRANCOIS SIMS Room #: REG MARCO A Mtz#: [id number] Admission: 07/03/20 Attend Phys: Discharge: Date of : 47 Report #: [id number] THIS REPORT FOR: //name// Report Transmitted: 07/03/2020 12:10 EMS Care Summary [facility] Incident [id number] @ 07/03/2020 09:30 Incident Location [address] [place] [address] Patient FRANCOIS SIMS Female, 75 Years 1945 Patient Address [address] [place] [address] [place] [address] Patient History Congestive Heart Failure (CHF),Gastro-Esophageal Reflux Disease (GERD),Atrial Fibrillation, Patient Allergies Cipro, Patient Medications None Reported, Chief Complaint Weakness Disposition Transported No Lights/[place] Dispatch Reason Sick Person Transported To [facility] Units dispatched to [facility] for a 75 year old female pt with a chief complaint of weakness. Upon arrival crew located pt laying supine in bed. Pt presented with a patent airway and warm dry skin. Nursing staff [address] [address] EMS Patient Care Report Name: FRANCOIS SIMS Room #: REG MARCO A Mtz#: [id number] Admission: 07/03/20 Attend Phys: Discharge: Date of : 47 Report #: [id number] reported the pt had been retaining fluid over the weekend and had to have an increased dosage of diuretics. Since then then pt had been complaining of generalized weakness. Pt stated that she "did not feel good". Pt denied chest pain or SOA. Nursing staff stated pts O2 sats were low over the weekend and had received a breathing treatment. Auscultation of lung sounds revealed clear and equal breath sounds in all shukla at this time. Pt was placed on stretcher by crew and secured using straps. Pt denied abd pain or nausea. Pt denied pain in extremities. Pt was able to answer all questions appropriately and follow all simple commands. 22 G IV was attempted in pts left hand but was unsuccessful. Prior to arriving at hospital Pt stated that she felt like she was wheezing. Reevaluation of lung sounds revealed expiratory wheezing in the lower lobes. Pt was transported Initial Vitals @09:37P: 65,BP: 161/81,Pain: 0/10,GCS: 15, @09:52P: 64,R: 15,BP: 192/102,Pain: 0/10,GCS: 15,CO: 6,SpO2: 96,Revised Trauma: 12, @09:53P: 60,R: 13,BP: 185/81,Pain: 0/10,GCS: 15,SpO2: 96,Revised Trauma: 12, @09:44P: 67,R: 27,BP: 184/85,Pain: 0/10,GCS: 15,CO: 3,SpO2: 92,Revised Trauma: 12, Assessments @09:37MENTAL:Person Oriented,Time Oriented,Place Oriented,Event Oriented,SKIN:HEENT:Head/Face: No Abnormalities,Neck/Airway: No Abnormalities,LUNG SOUNDS:General: No Abnormalities,ABDOMEN:General: No Abnormalities,PELVIS//GI:No Abnormalities,EXTREMITIES:Capillary Refill: Right Upper: < 2 Sec,Left Arm: No Abnormalities,Right Arm: No Abnormalities,Left Leg: No Abnormalities,Right Leg: No Abnormalities,PULSE:Radial: 2+ Normal,NEURO:No Abnormalities,@09:50MENTAL:No Abnormalities,SKIN:No Abnormalities,HEENT:Head/Face: No Abnormalities,Eyes: No Abnormalities,Neck/Airway: No Abnormalities,LUNG SOUNDS:General: No Abnormalities,Left Upper: No Abnormalities,Right Upper: No Abnormalities,Left Lower: No Abnormalities,Right Lower: No Abnormalities,ABDOMEN:General: No Abnormalities,Left Upper: No Abnormalities,Right Upper: No Abnormalities,Left Lower: No Abnormalities,Right Lower: No Abnormalities,PELVIS//GI:No Abnormalities,EXTREMITIES:Capillary Refill: Right Upper: < 2 Sec,Left Arm: No Abnormalities,Right Arm: No Abnormalities,Left Leg: No Abnormalities,Right Leg: No Abnormalities,PULSE:Radial: 2+ Normal,NEURO:No Abnormalities, Impression Generalized Weakness Procedures @09:37ALS AssessmentResponse: UnchangedSucceeded@09:48Normal Saline (.9% NaCl) cc (22 ga) Site: Hand-LeftResponse: UnchangedFailed [address] [address] EMS Patient Care Report Name: FRANCOIS SIMS Room #: VENUS Mtz#: [id number] Admission: 07/03/20 Attend Phys: Discharge: Date of : 47 Report #: [id number] Timeline 09:27,Call Received 09:27,Psap Call 09:30,Dispatched 09:31,En Route 09:34,On Scene 09:36,At Patient 09:37,ALS Assessment,Response: UnchangedSucceeded, 09:37,BP: 161/81 M,PULSE: 65,RR: R,SPO2: Ox,ETCO2: ,BG: ,PAIN: 0,GCS: 15, 09:44,BP: 184/85 M,PULSE: 67,RR: 27 R,SPO2: 92 Ox,ETCO2: ,BG: ,PAIN: 0,GCS: 15, 09:44,Depart Scene 09:48,Normal Saline (.9% NaCl) cc 22 ga Site: Hand-Left,Response: UnchangedFailed, 09:52,BP: 192/102 M,PULSE: 64,RR: 15 R,SPO2: 96 Ox,ETCO2: ,BG: ,PAIN: 0,GCS: 15, 09:53,BP: 185/81 M,PULSE: 60,RR: 13 R,SPO2: 96 Ox,ETCO2: ,BG: ,PAIN: 0,GCS: 15, 10:06,At Destination 10:20,Call Closed Disclaimer v1.1 Copyright 2020 [employer] This EMS Care Summary contains data elements from the applicable legal record (which may be displayed differently). It is designed to provide pertinent information for the following purposes: continuity of care, clinical quality, and state data reporting. The complete legal record is available to ED staff and administrators of the receiving hospital in ES's Patient Tracker. All data is provided "as is."
[~2020-07-03 10:09] MED LIST: B-12500 MCG PO; CELECOXIB100 MG PO; CELEXA 20 MG TA20 MG PO; COLACE100 MG PO; DEMADEX20 MG PO; FERROUS SULFAT325 MG PO; FOLIC ACID1 MG PO; IPRAT-ALBUT 0.5-3 ML INH; LACTULOSE20 GM/30 M PO; METOPROLOL TART25 MG PO; PROTONIX40 M4; SPIRONOLACTONE50 MG PO; TOPROL XL100 MG PO; VITAMIN D325 MC1 PO; VOLTAREN GEL 1100 G1 TOP; XARELTO15 MG PO; XIFAXAN550 MG PO
[2020-07-03 12:01] LABS: HEMATOCRIT 30.1 % (37.0-47.0); HEMOGLOBIN 9.5 gm/dL (12.0-15.0); MCHC 31.5 g/dL (28.0-37.0); MCV 95.3 fL (80.0-100.0); PLATELET COUNT 144 thou/uL (150-400); RBC 3.16 mil/uL (4.20-5.00); RDW 15.5 % (10.5-14.5)
[2020-07-03 12:16] LABS: ANION GAP 7 mmol/L (7-16); BUN 25 mg/dL (7-18); CALCIUM 8.7 mg/dL (8.5-10.1); CHLORIDE 110 mmol/L (98-107); CO2 30 mmol/L (21-32); CREATININE 1.3 mg/dL (0.6-1.0); GLUCOSE 86 mg/dL (74-106); SODIUM 147 mmol/L (136-145)
[2020-07-03 12:19] LABS: ABSOLUTE NEUTROPHILS 3.6 thou/uL (1.4-8.2); PLATELET ESTIMATE NORMAL
[2020-07-03 12:21] LABS: ALBUMIN 2.4 g/dL (3.4-5.0); DIRECT BILIRUBIN 0.2 mg/dL (<0.1-0.2); SGOT 58 U/L (15-37); SGPT 41 U/L (30-65); TOTAL BILIRUBIN 0.6 mg/dL (0.2-1.0); TROPONIN-I <0.06 ng/mL (<0.06)
[2020-07-03 14:30] VITALS: BP 163/65
[2020-07-03 19:23] VITALS: BP 169/70
--- NOTE | 2020-07-04 02:09 | NUR ---
DR JASSO PAGED TO GET MEDICATION ORDERED FOR PT DUE TO PT FEELING CLAUSTROPHOBIC.
[2020-07-04 05:46] LABS: HEMATOCRIT 30.6 % (37.0-47.0); HEMOGLOBIN 9.8 gm/dL (12.0-15.0); MCH 30.6 pg (26.0-34.0); MCHC 32.1 g/dL (28.0-37.0); MCV 95.5 fL (80.0-100.0); PLATELET COUNT 143 thou/uL (150-400); RDW 15.1 % (10.5-14.5); WBC 4.3 thou/uL (4.0-11.0)
[2020-07-04 06:33] LABS: CALCIUM 8.6 mg/dL (8.5-10.1); CREATININE 1.4 mg/dL (0.6-1.0); MAGNESIUM 1.8 mg/dL (1.8-2.4); POTASSIUM 4.1 mmol/L (3.5-5.1)
[2020-07-04 11:04] LABS: ABSOLUTE NEUTROPHILS 2.5 thou/uL (1.4-8.2); ANISOCYTOSIS SLIGHT; ATYPICAL LYMPHS 2 %; HYPOCHROMASIA SLIGHT; POIKILOCYTOSIS SLIGHT
[2020-07-04 14:00] VITALS: BP 113/66
[2020-07-04 17:57] VITALS: BP 167/76
[2020-07-04 22:31] VITALS: BP 115/61
[2020-07-05 02:15] VITALS: BP 122/53
[2020-07-05 06:07] VITALS: BP 133/64
[2020-07-05 06:39] LABS: ALBUMIN 2.3 g/dL (3.4-5.0); CALCIUM 8.8 mg/dL (8.5-10.1); CREATININE 1.5 mg/dL (0.6-1.0); PHOSPHORUS 4.2 mg/dL (2.5-4.9); POTASSIUM 3.7 mmol/L (3.5-5.1)
[2020-07-05 10:27] VITALS: BP 154/69
[2020-07-05 14:25] VITALS: BP 132/59
[2020-07-05 16:08] VITALS: BP 140/64
[2020-07-05 21:45] VITALS: BP 163/68
[2020-07-06 03:14] VITALS: BP 130/60
[2020-07-06 06:38] LABS: ALBUMIN 2.2 g/dL (3.4-5.0); CALCIUM 8.4 mg/dL (8.5-10.1); CREATININE 1.3 mg/dL (0.6-1.0); PHOSPHORUS 3.8 mg/dL (2.5-4.9); POTASSIUM 3.6 mmol/L (3.5-5.1)
[2020-07-06 08:47] LABS: HEMATOCRIT 32.2 % (37.0-47.0); HEMOGLOBIN 10.1 gm/dL (12.0-15.0); MCH 29.7 pg (26.0-34.0); MCHC 31.5 g/dL (28.0-37.0); MCV 94.2 fL (80.0-100.0); RBC 3.41 mil/uL (4.20-5.00); RDW 14.7 % (10.5-14.5); WBC 5.3 thou/uL (4.0-11.0)
[2020-07-06 08:54] LABS: CALCIUM 8.8 mg/dL (8.5-10.1); CREATININE 1.4 mg/dL (0.6-1.0); MAGNESIUM 1.8 mg/dL (1.8-2.4); POTASSIUM 3.6 mmol/L (3.5-5.1)
[2020-07-06] MEDS ORDERED: DEMADEX20 MG PO (12:18)
--- NOTE | 2020-07-06 12:22 | NUR ---
Contacted Jess Bustillos with [facility], [place] - [phone]. Plan is to return today to [facility] or home pending therapy evaluations to determine disposition needs for skilled level of care. NOTE: Covid + status and determined no indications to treat with standard regime. Found to have needs at discharge for general debility and decondition related to admitting diagnosis of Acute Heart Failure, and Acute Kidney injury. Spoke with Tiffanie Lucero [phone] to discuss role of CM and discuss plan of discharge and choice. Per Physical therapy; patient is safe to discharge home with home health. Daughter did not have a preface in home health. Contacted Jess at [facility] and is checking to see if they have a home health + team to follow for the patients home health needs. Jess did get back with me and unable to take a positive patient at this time. Referral sent to [facility] for home health. Once determined ability to take on service will have DCP fax orders and set up time for transport from [facility] to [address] [place] [address]. Once transport time has been set up, CM will call tiffanie Clayton back on expected time of arrival for mother. CM will continue to follow for discharge needs until departure.
[2020-07-06 13:09] VITALS: BP 137/67
--- NOTE | 2020-07-06 14:11 | NUR ---
Called back to confirm with daughter Matilde Lucero [phone] at 1430 to return home from the ED and Robert has all information and will call the daughter to set up initial admit visit and time. Daughter thanked me for the call [place] [phone] at 1414
--- NOTE | 2020-07-06 14:12 | NUR ---
BRADLY SMITH STATES PT. WILL BE PICKED UP WITH ARRANGEMENT FOR HH IN 25MINS
--- NOTE | 2020-07-06 15:00 | NUR ---
PT DISCHARGING TODAY TO HOME WITH [facility] FAXED DC ORDERS/SUMMARY RECEIVED CONFIRMATION THEY WILL NOTIFY PT TO ARRANGE VISITS. ARRANGED TRANSPORT WITH [id number] AT 1430 TODAY NOTIFIED ER OF TRANSPORT TIME.
--- NOTE | 2020-07-10 07:54 | EKG ---
[place] [address] [address] [facility] [employer] [place] [address] ELECTROCARDIOGRAM REPORT Name: FRANCOIS SIMS Room #: [facility] Bibi#: [id number] Admission: 07/03/20 Attend Phys: Discharge: 07/03/20 Date of : 47 Report #: [id number] [facility] ED Test Date: 2020-07-03 Test Time: 10:43:57 Pat Name: FRANCOIS SIMS Department: Room: Gender: F Zinc Miner: JOHNNY : 1945 Requested By: Aurea Shabazz Order Number: [id number] MD: Ryan Dennis Measurements Intervals [place] Rate: 60 P: -24 NV: 152 QRS: -30 QRSD: 227 T: 59 QT: 451 QTc: 451 Interpretive Statements Sinus rhythm Left ventricular hypertrophy Inferior infarct, old Anterior infarct, old Compared to ECG 06/07/2020 04:07:11 Left ventricular hypertrophy now present Poor R-wave progression no longer present Myocardial infarct finding still present Electronically Signed On 07-03-2020 13:03:57 BRAND MARKETING MANAGER by Ryan Dennis [email or web address] <ELECTRONICALLY SIGNED> By: Ryan Dennis MD, [facility] 07/03/20 1303 [id number] Ryan Dennis MD, FAC /EPI
--- NOTE | 2020-07-11 16:31 | NUR ---
RECEIVED CALL CALL FROM INTAKE AT [facility] THEY ARE NOT ABLE TO SEE PT FOR HH POST DC I, HAVE TRIED TO FIND ALTERNATE HH NO [facility], [facility], [facility], [facility], [facility], [facility], ARE ALL AT CAPACITY. SPOKE WITH INTAKE AT [facility] THEY WILL TRY TO SEE IF THEY CAN WORK PT IN BY THE END OF THE YEAR THEY HAVE BEEN KEEPING IN CONTACT WITH PT'S DTR,
== END 2020-07-07 07:53 | disposition home health service (06) | DRG 177 ==
LOC: ER 10:09 → EROBS 14:46 → ER 14:46 → EROBS 21:34
PROVIDERS: Emergency Medicine; Internal Medicine; Internal Medicine Nephrology; Nurse Practitioner; ADMIT Hospitalist; ATTEND Hospitalist
DX: U07.1 COVID-19 (principal); G93.41 Metabolic encephalopathy; I13.0 Hypertensive heart and chronic kidney disease with heart failure and stage 1 through stage 4 chronic kidney disease, or unspecified chronic kidney disease; E87.0 Hyperosmolality and hypernatremia; E44.0 Moderate protein-calorie malnutrition; D61.818 Other pancytopenia; N17.9 Acute kidney failure, unspecified; E87.3 Alkalosis; I48.0 Paroxysmal atrial fibrillation; K74.60 Unspecified cirrhosis of liver; D64.9 Anemia, unspecified; I50.9 Heart failure, unspecified; B18.2 Chronic viral hepatitis C; R53.81 Other malaise; N18.31 Chronic kidney disease, stage 3a; Z68.30 Body mass index [BMI] 30.0-30.9, adult

== ENCOUNTER 2020-10-14 14:31 | Inpatient (IN) | payer OTHER ==
[~2020-10-14] VITALS: Ht 154.9 cm; Wt 87.1 kg
[2020-10-14 14:32] VITALS: BP 129/69
[2020-10-14 15:00] LABS: HEMATOCRIT 38.6 % (37.0-47.0); HEMOGLOBIN 12.7 gm/dL (12.0-15.0); MCHC 32.8 g/dL (28.0-37.0); MCV 91.4 fL (80.0-100.0); RBC 4.23 mil/uL (4.20-5.00); RDW 16.9 % (10.5-14.5); WBC 9.5 thou/uL (4.0-11.0)
[2020-10-14 15:16] LABS: CALCIUM 8.5 mg/dL (8.5-10.1); CREATININE 1.7 mg/dL (0.6-1.0); POTASSIUM 3.7 mmol/L (3.5-5.1)
[2020-10-14 15:24] LABS: ALBUMIN 2.2 g/dL (3.4-5.0); DIRECT BILIRUBIN 0.3 mg/dL (<0.1-0.2); TOTAL BILIRUBIN 1.3 mg/dL (0.2-1.0); TOTAL PROTEIN 5.8 g/dL (6.4-8.2)
[2020-10-14 15:25] LABS: TROPONIN-I 0.22 ng/mL (<0.06)
[2020-10-14 15:43] LABS: URINE BILIRUBIN NEGATIVE (Negative); URINE BLOOD 3+ (Negative); URINE CLARITY SL CLOUDY; URINE COLOR YELLOW; URINE GLUCOSE-RANDOM* NEGATIVE (Negative); URINE KETONES NEGATIVE (Negative); URINE LEUKOCYTES-REFLEX 3+ (Negative); URINE NITRITE-REFLEX POSITIVE (Negative); URINE PROTEIN (DIPSTICK) NEGATIVE (Negative); URINE UROBILINOGEN 0.2 E.U./dl (0.2-1.0)
[2020-10-14 15:52] LABS: WBC CLUMPS Moderate (None Seen)
[2020-10-14 15:53] LABS: BACTERIA-REFLEX >30 Many /HPF (None Seen); SQUAMOUS 4-10 Moderate /LPF (0-3); URINE RBC >20 Many /HPF (0-2); URINE WBC-REFLEX >25 Many /HPF (0-5)
[2020-10-14 15:54] LABS: CASTS None Seen /LPF (None Seen); CRYSTALS None Seen /LPF (None Seen)
[2020-10-14] MEDS ORDERED: POTASSIUM20 PO (16:38)
[2020-10-14] MEDS ORDERED: TOPROL XL100 MG PO (16:39)
[2020-10-14 17:14] VITALS: BP 114/56
[2020-10-14 18:19] VITALS: BP 94/55
[2020-10-14 18:39] VITALS: BP 102/61
[2020-10-14 23:48] VITALS: BP 158/89
[2020-10-15] VITALS (10 sets, daily range): BP systolic 102–158; BP diastolic 58–89
[2020-10-15 02:13] LABS: HEMATOCRIT 34.4 % (37.0-47.0); HEMOGLOBIN 11.1 gm/dL (12.0-15.0); MCH 29.6 pg (26.0-34.0); MCHC 32.4 g/dL (28.0-37.0); MCV 91.5 fL (80.0-100.0); RBC 3.75 mil/uL (4.20-5.00); RDW 16.3 % (10.5-14.5); WBC 10.2 thou/uL (4.0-11.0)
[2020-10-15 02:31] LABS: ALBUMIN 1.8 g/dL (3.4-5.0); CALCIUM 7.8 mg/dL (8.5-10.1); CREATININE 1.7 mg/dL (0.6-1.0); MAGNESIUM 1.6 mg/dL (1.8-2.4); POTASSIUM 3.7 mmol/L (3.5-5.1); TOTAL BILIRUBIN 0.9 mg/dL (0.2-1.0); TOTAL PROTEIN 5.2 g/dL (6.4-8.2); TROPONIN-I 0.4 ng/mL (<0.06)
--- NOTE | 2020-10-15 07:10 | NUR ---
Arrived on the floor from ER around 183. WATER TRAINER and annual greenhouse manager notified of negative COVID test result. Tylenol given for temp 100.2 (oral) and this am temp 99.2 (oral) . C/O being short of breath while in rapid a fib. O2 at 2L/NC placed eventhough O2 sat 94% and pt. stated it did help. Cardizem gtt. titrated to keep HR below 100. A fib with HR in the 90's at this time. Low magnesium level reported to WATER TRAINER. MG 2 gm IV started. Denies being in pain this am as long as she's resting. Incontinent of bladder. Bed alarm on and SCD's in place.
--- NOTE | 2020-10-15 11:29 | EKG ---
[address] [address] ELECTROCARDIOGRAM REPORT Name: ALEXIA SIMSGÉNESIS Room #: 350-P ADM IN M.R.#: [id number] Admission: 10/14/20 Attend Phys: Reji Hilton MD Discharge: Date of : 47 Report #: [id number] [facility] ED Test Date: 2020-10-14 Test Time: 14:44:40 Pat Name: FRANCOIS SIMS Department: Room: 350 Gender: F Event Services Manager: KASIA : 1945 Requested By: Tee Castro Order Number: [id number] MD: Ryan Dennis Measurements Intervals [place] Rate: 170 P: CO: QRS: -42 QRSD: 68 T: 94 QT: 283 QTc: 476 Interpretive Statements Atrial fibrillation with rapid V-rate Ventricular premature complex Inferior infarct, old Lateral leads are also involved Compared to ECG 07/03/2020 10:43:57 Ventricular premature complex(es) now present Sinus rhythm no longer present Left ventricular hypertrophy no longer present Myocardial infarct finding still present Electronically Signed On 10-15-2020 11:29:20 CDT by Ryan Dennis [email or web address] <ELECTRONICALLY SIGNED> By: Ryan Dennis MD, FACC 10/15/20 1129 1444 1444 Ryan Dennis MD, [facility] /EPI
--- NOTE | 2020-10-15 11:31 | EKG ---
[address] [address] ELECTROCARDIOGRAM REPORT Name: ALEXIA SIMSGÉNESIS Room #: 350-P ADM IN M.R.#: [id number] Admission: 10/14/20 Attend Phys: Reji Hilton MD Discharge: Date of : 47 Report #: [id number] [facility] Test Date: 2020-10-15 Test Time: 07:56:02 Pat Name: FRANCOIS SIMS Department: Room: 350 P Gender: F Behavioral Therapy Coordinator: : 1945 Requested By: Reji Hilton Order Number: [id number] : Ryan Dennis Measurements Intervals [place] Rate: 94 P: ME: QRS: -33 QRSD: 70 T: 39 QT: 386 QTc: 483 Interpretive Statements Atrial fibrillation Inferior infarct, old Anteroseptal infarct, age indeterminate Compared to ECG 10/14/2020 14:44:40 Ventricular premature complex(es) no longer present Myocardial infarct finding still present Electronically Signed On 10-15-2020 11:30:56 CDT by Ryan Dennis [email or web address] <ELECTRONICALLY SIGNED> By: Ryan Dennis MD, [facility] 10/15/20 [phone] 0756 Ryan Dennis MD, FAC /EPI
[2020-10-16 04:05] VITALS: BP 126/71
[2020-10-16 04:10] VITALS: BP 126/71
--- NOTE | 2020-10-16 05:23 | NUR ---
Pt. stated she slept intermittently during the night. Denies any pain though she c/o intermittent shortness of breath with exertion. O2 sat in the upper 90's to 100% on 2L/NC. Max temp of 99.0 (oral). Up with assist to commode then had period of being incontinent when she woke up. A fib with controlled rate in the 80's to 90's, cardizem gtt. infusing at 10 mg/hr. Making progress towards care plan goals.
[2020-10-16 07:00] VITALS: BP 119/66
[2020-10-16 11:42] LABS: CALCIUM 8.1 mg/dL (8.5-10.1); CREATININE 1.5 mg/dL (0.6-1.0); MAGNESIUM 1.9 mg/dL (1.8-2.4); POTASSIUM 3.4 mmol/L (3.5-5.1)
--- NOTE | 2020-10-16 14:16 | 2DMMODE ---
[facility] [place] [address] 2 D/M-MODE ECHOCARDIOGRAM Name: FRANCOIS SIMS Room #: 350-P ADM IN M.R.#: [id number] Admission: 10/14/20 Attend Phys: Reji Hilton MD Discharge: Date of : 47 Report #: [id number] THIS REPORT FOR: cc: FAM - Family physician unknown FAM - Family physician unknown Michael Cummins MD [facility] ~ APPROVED REPORT Study performed: 10/16/2020 12:51:56 EXAM: Comprehensive 2D, Doppler, and color-flow Echocardiogram Patient Location: Bedside Room #: 350 Status: routine BSA: 1.81 HR: 86 bpm BP: 119/66 mmHg Rhythm: Atrial Fibrillation Other Information Study Quality: Adequate Indications Atrial Fibrillation Non STEMI Hypertension/HDD 2D Dimensions RVDd: 22.01 mm IVSd: 9.35 (7-11mm) LVOT Diam: 16.76 (18-24mm) LVDd: 55.82 mm PWd: 9.43 (7-11mm) Ascending Ao: 28.85 (22-36mm) LVDs: 30.65 (25-40mm) Left Atrium: 53.46 (27-40mm) Aortic Root: 25.25 mm IVC: 12.00 mm Volumes Left Atrial Volume (Systole) Single Plane 4CH: 75.37 mL Single Plane 2CH: 84.07 mL LA ESV Index: 50.00 mL/m2 Aortic Valve AoV Peak Raffi.: 1.79 m/s AO Peak Gr.: 12.80 mmHg LVOT Max P.29 mmHg [facility] [address] [place] [address] 2 D/M-MODE ECHOCARDIOGRAM Name: FRANCOIS SIMS Room #: 350-P [facility] IN AldenJazz#: [id number] Admission: 10/14/20 Attend Phys: Reji Hilton MD Discharge: Date of : 47 Report #: [id number] LVOT Max V: 1.15 m/s JOB Vmax: 1.42 cm2 Mitral Valve MV Peak Gr.: 25.18 mmHg MV Mean Gr.: 11.54 mmHg MV Max Raffi.: 2.51 m/s MV Mean Raffi.: 1.58 m/s MV VTI: 550.34 mm MV PHT: 118.98 ms MVA (PHT): 1.85 cm2 IVRT: 59.98 ms Pulmonary Valve PV Peak Raffi.: 1.30 m/s PV Peak Gr.: 6.76 mmHg Tricuspid Valve TR Peak Rfafi.: 3.61 m/s TR Peak Gr.: 52.23 mmHg PA Pressure: 57.00 mmHg Left Ventricle The left ventricle is normal size. There is normal LV segmental wall motion. There is normal left ventricular wall thickness. The left ventricular systolic function is normal. The left ventricular ejection fraction is within the normal range. LVEF 60-65%%. This study is not technically sufficient to allow evaluation of the LV diastolic function due to atrial fibrillation. Right Ventricle The right ventricle is normal size. The right ventricular systolic function is normal. Atria Left atrium is dilated. Right atrium is dilated. Aortic Valve Aortic valve is mildly calcified. No aortic regurgitation is present. There is no aortic valvular stenosis. Mitral Valve Heavy mitral annular calcification. Mild-moderate mitral regurgitation. Moderate to severe mitral stenosis. (Peak gradient of 24 mmHg, mean pressure gradient of 10 mmHg). Tricuspid Valve [facility] [address] [place] [address] 2 D/M-MODE ECHOCARDIOGRAM Name: FRANCOIS SIMS Room #: 350-P [facility] IN M.R.#: [id number] Admission: 10/14/20 Attend Phys: Reji Hilton MD Discharge: Date of : 47 Report #: [id number] The tricuspid valve is normal in structure. There is mild tricuspid regurgitation. Estimated PAP 55 mmHg. There is moderate pulmonary hypertension. Pulmonic Valve The pulmonary valve is normal in structure. Trace pulmonic regurgitation. Great Vessels The aortic root is normal in size. IVC is normal in size and collapses >50% with inspiration. Pericardium There is no pericardial effusion. <Conclusion> The left ventricular systolic function is normal. There is normal LV segmental wall motion. LVEF 60-65%%. Both atria are dilated. Aortic valve is mildly calcified. No aortic valvular stenosis or insufficiency. Heavy mitral annular calcification. Mild-moderate mitral regurgitation. Moderate to severe mitral stenosis. (Peak gradient of 24 mmHg, mean pressure gradient of 10 mmHg). There is mild tricuspid regurgitation. Estimated pulmonary artery pressure of 55 mmHg. There is no pericardial effusion. <ELECTRONICALLY SIGNED> By: Michael Cummins MD, FACC 10/16/20 1416 141 141 Michael Cummins MD, FACC /INF
--- NOTE | 2020-10-16 15:02 | NUR ---
INITIAL ASSESSMENT: Received consult. HALLIE reviewed chart and spoke with nursing and attending physician. Pt was admitted from home due to Afib with RVR. Pt placed in Enhanced Isolation to r/o COVID. Pt's COVID test on 10/14 was negative. Isolation precautions discontinued. Pt with hx of COVID in June of 2020. Pt is on 2L of O2 and IV abx. Pt on cardizem gtt. Therapy has been ordered to evaluate pt. Recommendation made for pt to return home with HH. Pt with hx of SNF placement at [facility] and HH services through [facility]. HALLIE left voice message for pt's dtr, Matilde, to discuss discharge planning. Pt may be ready for discharge in 1-2 days. Per chart, pt lives at home with her dtr and usese a walker. HALLIE is following to assist as needed with discharge planning.
[2020-10-16 15:03] VITALS: BP 129/73
[2020-10-16 19:28] VITALS: BP 117/64
[2020-10-17 04:09] VITALS: BP 122/82
[2020-10-17 05:47] LABS: CALCIUM 8.4 mg/dL (8.5-10.1); CREATININE 1.4 mg/dL (0.6-1.0); MAGNESIUM 2.1 mg/dL (1.8-2.4); POTASSIUM 3.8 mmol/L (3.5-5.1)
--- NOTE | 2020-10-17 06:06 | NUR ---
Pt. stated she slept well during the night. Tolerating room air well with O2 sat in the mid to upper 90's. Shortness of breath with exertion. Afebrile. Up with assist to commode with periods of bladder incotinence at HS. Making some progress towards care plan goals.
[2020-10-17 07:00] VITALS: BP 133/88
[2020-10-17 10:57] VITALS: BP 104/62
--- NOTE | 2020-10-17 15:06 | NUR ---
HALLIE reviewed chart and spoke with nursing and attending physician. Pt remains on IV abx. Cardizem gtt discontinued. Pt is progressing towards goals for discharge. Discharge is anticipated for tomorrow. HALLIE spoke with pt's dtr, Matilde, via phone. Introduced role of HALLIE. Pt has been living with Matilde for the past several months. Pt will be returning to her home in [place] soon. Pt's PCP and tiler's assistant are in [place]. Pt will return to [facility] when discharged. Pt was recently on service with [facility]. Pt's dtr requests referral to be sent to [facility] for review. HALLIE faxed referral and spoke with intake to notify of new referral. Pt's dtr will provide transportation home when pt is discharged. HALLIE is following to assist as needed with discharge planning.
[2020-10-17 15:14] VITALS: BP 117/66
[2020-10-17 19:38] VITALS: BP 134/87
--- NOTE | 2020-10-18 03:12 | NUR ---
Pt. slept fair during the night. Right knee pain , scheduled diclofenac given with good relief. Tolerating room air well though she gets short of breath with exertion. Up with assist to commode to void. A fib with controlled rate. Making progress towards care plan goals.Bed alarm on.
--- NOTE | 2020-10-18 03:29 | NUR ---
Pt. slept fair during the night. Maintaining O2 sat in the low to mid 90's on BIPAP at 85%. Cont. on enhanced precaution , afebrile. Denies any pain. Offered dinner at shift change ,declined stating she has no appetite. TPN infusing.
[2020-10-18 04:20] VITALS: BP 142/86
[2020-10-18 07:13] VITALS: BP 155/83
[2020-10-18 10:40] VITALS: BP 155/83
[2020-10-18 11:53] VITALS: BP 138/87
--- NOTE | 2020-10-18 13:06 | NUR ---
DISCHARGE NOTE: HALLIE reviewed chart and spoke with nursing and attending physician. Discharge orders/summary written for pt to discharge home today with services. HALLIE faxed finalized discharge orders/summary to [facility] and confirmed info was received with intake. HALLIE left voice message for pt's dtr, Matilde, to notify of discharge orders. Matilde to provide transportation home. HALLIE updated nursing, who states that a chest xray has been ordered. Pt's dtr updated by nursing. Contact info for HH placed in pt's discharge summary. HALLIE is following to assist as needed with discharge planning.
[2020-10-18 15:12] VITALS: BP 134/64
--- NOTE | 2020-10-18 18:23 | NUR ---
ASSUMED PATIENT CARE AT 0700, A/O X4. NOTED PATIENT HAS STRIDOR BREATHING. CXR AND LAB ORDERED. 2+ EDEMA BLE. SOB WITH EXERTION. WILL KEEP MONITOR.
[2020-10-18 19:17] VITALS: BP 119/85
--- NOTE | 2020-10-18 23:35 | NUR ---
PT RESTING IN BED. PT BREATHING WITH STRIDOR. BLE EDEMA. PT HAD BED BATH. BED ALARM ON.
[2020-10-19 04:15] VITALS: BP 115/79
[2020-10-19 05:59] LABS: CALCIUM 8.6 mg/dL (8.5-10.1); CREATININE 1.4 mg/dL (0.6-1.0)
[2020-10-19 08:15] VITALS: BP 110/90
[2020-10-19 08:50] VITALS: BP 126/71
--- NOTE | 2020-10-19 13:33 | NUR ---
HALLIE reviewed chart and spoke with nursing and attending physician. Pt is progressing towards goals for discharge. Pt remains on IV abx/IV lasix. Pt to discharge home with [facility] tomorrow. HALLIE spoke with Laya in intake at to provide update. HALLIE is following to assist as needed with discharge planning.
--- NOTE | 2020-10-19 14:29 | NUR ---
PATIENT REQUESTING THROUGH WATER/WASTEWATER ENGINEER THAT APPEAL FOR ACUTE REHAB BE SENT TO PATIENT'S INSURANCE COMPANY. RECENT PHYSICIAN AND THERAPY DOCUMENTATION SENT TO INSURANCE COMPANY BY FAX TO THEIR EXPADITED APPEAL LINE, . AWAITING RESPONSE. INSURANCE COMPANY TO NOTIFY WATER/WASTEWATER ENGINEER UPON DECISION.
[2020-10-19 14:51] VITALS: BP 112/69
--- NOTE | 2020-10-19 18:21 | NUR ---
ASSUMED PATIENT CARE AT 0700. A/O X4. PATIENT STILL HAS STRIDOR BEATHING BUT BETTER NOW. VSS. SLOWLY TOWARDS POC GOALS.
[2020-10-19 19:09] VITALS: BP 120/64
--- NOTE | 2020-10-20 00:02 | NUR ---
PT UP IN CHAIR ASSITED X 1 BACK TO BED. PT USING BSC. PT HAVING MINIMAL GROAN/STRIDOR NOISES THIS EVENING. LUNGS WITH WHEEZES. BLE EDEMA. BED ALARM ON.
[2020-10-20 04:22] VITALS: BP 119/77
[2020-10-20 08:47] VITALS: BP 136/77
[2020-10-20 08:51] VITALS: BP 136/77
--- NOTE | 2020-10-20 14:07 | NUR ---
DISCHARGE NOTE: HALLIE reviewed chart and spoke with nursing and attending physician. Pt is medically stable for discharge home today with [facility] services. HALLIE met with pt at bedside to discuss discharge plan. Pt is aware and agreeable with discharge plan. Pt's dtr to provide transportation home. HALLIE faxed finalized discharge orders/summary to HH and spoke with Laya in intake at [facility] to notify of pt's discharge today. HALLIE spoke with pt's dtr, Matilde, via phone to discuss discharge plan. Matilde will be at [facility] between [phone] to pickle water pump operator pt. HALLIE updated pt's nurse. Contact info for HH placed in pt's discharge summary. No additional SW needs identified at this time, but is available to assist should needs arise.
== END 2020-10-20 16:29 | disposition home health service (06) | DRG 871 ==
LOC: ER 14:31 → 3W 16:53 → EROBS 16:53 → 3W 18:35
PROVIDERS: Hospitalist; Internal Medicine; Nurse Practitioner; ADMIT Internal Medicine; ATTEND Internal Medicine
DX: A41.9 Sepsis, unspecified organism (principal); I21.4 Non-ST elevation (NSTEMI) myocardial infarction; J96.01 Acute respiratory failure with hypoxia; G92 Toxic encephalopathy; E43 Unspecified severe protein-calorie malnutrition; N39.0 Urinary tract infection, site not specified; I50.32 Chronic diastolic (congestive) heart failure; E87.0 Hyperosmolality and hypernatremia; E46 Unspecified protein-calorie malnutrition; I13.0 Hypertensive heart and chronic kidney disease with heart failure and stage 1 through stage 4 chronic kidney disease, or unspecified chronic kidney disease; I48.0 Paroxysmal atrial fibrillation; Z20.822 Contact with and (suspected) exposure to COVID-19; M17.0 Bilateral primary osteoarthritis of knee; N18.9 Chronic kidney disease, unspecified; I25.10 Atherosclerotic heart disease of native coronary artery without angina pectoris; D63.8 Anemia in other chronic diseases classified elsewhere; I05.0 Rheumatic mitral stenosis; B18.2 Chronic viral hepatitis C; K74.60 Unspecified cirrhosis of liver; D69.6 Thrombocytopenia, unspecified; B96.20 Unspecified Escherichia coli [E. coli] as the cause of diseases classified elsewhere; Z86.16 Personal history of COVID-19; Z68.36 Body mass index [BMI] 36.0-36.9, adult
CPT/HCPCS: 10879

== ENCOUNTER 2021-05-08 16:53 | Inpatient (IN) | payer OTHER ==
[~2021-05-08] VITALS: Ht 154.9 cm; Wt 73.5 kg
[~2021-05-08 16:53] MED LIST changes: +POTASSIUM20 PO
[2021-05-08 17:06] VITALS: BP 93/33
[2021-05-08 18:18] LABS: BASOPHILS 0.3 % (0.0-2.0); EOSINOPHILS 1.8 % (0.0-3.0); HEMATOCRIT 28.9 % (37.0-47.0); LYMPHOCYTES 13.3 % (24.0-44.0); MCH 30.4 pg (26.0-34.0); MCHC 31.2 g/dL (28.0-37.0); MCV 97.3 fL (80.0-100.0); MONOCYTES 12.7 % (1.0-8.0); PLATELET COUNT 184 thou/uL (150-400); POLYS 71.9 % (36.0-66.0); RBC 2.97 mil/uL (4.20-5.00); RDW 14.8 % (10.5-14.5); WBC 6.9 thou/uL (4.0-11.0)
[2021-05-08 18:31] LABS: CREATININE 3.5 mg/dL (0.6-1.0); POTASSIUM 5.5 mmol/L (3.5-5.1)
[2021-05-08 18:38] LABS: ALBUMIN 2.5 g/dL (3.4-5.0); TOTAL BILIRUBIN 0.3 mg/dL (0.2-1.0); TOTAL PROTEIN 5.4 g/dL (6.4-8.2)
[2021-05-08 18:43] LABS: APTT 36.8 Seconds (24.5-32.8); INR 1.49; PROTIME 15.9 Seconds (10.5-12.1)
[2021-05-08] MEDS ORDERED: TOPROL XL50 MG PO (18:49)
[2021-05-08] MEDS ORDERED: SPIRONOLACTONE25 MG PO (18:51)
[2021-05-08] MEDS ORDERED: DILTIAZEM ER180 M2 PO (18:51)
[2021-05-08 19:40] LABS: URINE BILIRUBIN NEGATIVE (Negative); URINE BLOOD NEGATIVE (Negative); URINE CLARITY SL HAZY; URINE COLOR YELLOW; URINE GLUCOSE-RANDOM* NEGATIVE (Negative); URINE KETONES NEGATIVE (Negative); URINE LEUKOCYTES-REFLEX 1+ (Negative); URINE NITRITE-REFLEX POSITIVE (Negative); URINE PROTEIN (DIPSTICK) NEGATIVE (Negative); URINE SPECIFIC GRAVITY 1.015 (1.005-1.035); URINE UROBILINOGEN 0.2 E.U./dl (0.2-1.0)
[2021-05-08 20:08] LABS: BACTERIA-REFLEX >30 Many /HPF (None Seen); CASTS None Seen /LPF (None Seen); CRYSTALS None Seen /LPF (None Seen); SQUAMOUS >10 Many /LPF (0-3); URINE RBC None Seen /HPF (NONE SEEN); URINE WBC-REFLEX 6-15 Few /HPF (0-5)
[2021-05-08 21:39] VITALS: BP 104/44
[2021-05-08 21:46] VITALS: BP 104/44
--- NOTE | 2021-05-08 22:06 | NUR ---
SPOKE TO PATIENTS DAUGHTER JONAS REGARDING POC
[2021-05-08 22:57] VITALS: BP 94/39
--- NOTE | 2021-05-09 02:37 | NUR ---
PT ADMITTED TO THE UNIT WITH C/O LOWER ABD PAIN.PT IS A/O X4.PT IS FROM HOME AND LIVES WITH DTR.PT DENIED N/V/D .PT IS ON ROOM AIR.PT IS INCONTINENT TO BLADDER.IV ACCESS RT AC WITH NS AT 100CC/HR.PT ABLE TO MAKE NEEDS KNOWN.SKIN DRY BUT INTACT WITH NO OPEN WOUNDS.PT NPO TILL CLEARED BY GI.WILL CONTINUE TO MONITOR PER POC
[2021-05-09 05:46] VITALS: BP 87/45
[2021-05-09 06:12] LABS: HEMATOCRIT 25.3 % (37.0-47.0); HEMOGLOBIN 7.9 gm/dL (12.0-15.0); MCH 30.5 pg (26.0-34.0); MCHC 31.4 g/dL (28.0-37.0); MCV 97.4 fL (80.0-100.0); RBC 2.6 mil/uL (4.20-5.00); RDW 14.7 % (10.5-14.5); WBC 6.2 thou/uL (4.0-11.0)
[2021-05-09 06:33] LABS: CALCIUM 8.6 mg/dL (8.5-10.1); CREATININE 3.2 mg/dL (0.6-1.0); POTASSIUM 4.9 mmol/L (3.5-5.1)
--- NOTE | 2021-05-09 07:19 | EKG ---
[address] [place] 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: TOREY : 1945 Requested By: Bobby Sim Order Number: [id number] MD: Ryan Dennis Measurements Intervals [place] Rate: 72 P: 0 AR: 178 QRS: -42 QRSD: 89 T: 69 QT: 395 QTc: 433 Interpretive Statements Sinus rhythm Inferior infarct, old Consider anterior infarct Compared to ECG 10/15/2020 07:56:02 Atrial fibrillation no longer present Myocardial infarct finding still present Electronically Signed On 05-09-2021 7:19:17 CDT by Ryan Dennis [email or web address] <ELECTRONICALLY SIGNED> By: Ryan Dennis MD, [facility] 05/09/21718 24 Ryan Dennis MD, FAC /EPI
[2021-05-09 08:15] VITALS: BP 93/42
[2021-05-09 12:15] VITALS: BP 91/43
[2021-05-09 14:33] LABS: % SATURATION 10 % (20-39); IRON 26 ug/dL (50-170); TIBC 265 ug/dL (250-450)
[2021-05-09 15:36] VITALS: BP 94/43
--- NOTE | 2021-05-09 16:02 | NUR ---
PT ADMITTED RELATED TO GASTRITIS AND ARF. CM REVIEWED CHART AND SPOKE WITH CARE TEAM. CM MET WITH PT AT BEDSIDE THIS DAY. PT APPEARED TO BE A&O X4. CM ROLE INTRODUCED. 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 PT INDICATED SHE HAD USED A FWW TO ASSIST WITH MOBILITY MEDICAL RECORD SPECIALIST. PT INDICATED SHE HAD BEEN INDEPEDNENT WITH GAIT MEDICAL RECORD SPECIALIST. PT INDICATED THAT SHE HAD A PCP IN [facility] BUT THAT SHE HAD GOTTEN NAMES FROM HER INSURANCE TO ESTABLISH HERSELF WITH A PCP LOCALLY BUT THAT SHE HASN'T YET. CM FOLLOWING REGARDING DC PLANNING.
--- NOTE | 2021-05-09 19:56 | NUR ---
Assumed pt care at 7am.Pt in and ouf of bed for activities. Assessment completed.vss.Pt kept npo till seen by gi today. Pt was placed on clear liq diet later this afternoon. Gi here and stated that pt will be having egd and colonoscopy in am. Consent form signed. Pt ambulated in hallways with therapist. Good endurance noted. Bowel prep started this evening. Report off to donald pablo.
[2021-05-09 20:46] VITALS: BP 102/58
--- NOTE | 2021-05-10 04:48 | NUR ---
Pt. rested quietly at intervals during the night when checked on during frequent rounds. She has been up to the comode several times and now is having clear greenish colored stool post bowel prep. No c/o pain. Bed alarm is on.
[2021-05-10 09:04] VITALS: BP 109/43
[2021-05-10 10:19] LABS: HEMATOCRIT 22.7 % (37.0-47.0); HEMOGLOBIN 7.2 gm/dL (12.0-15.0); MCHC 31.6 g/dL (28.0-37.0); RBC 2.32 mil/uL (4.20-5.00); RDW 14.5 % (10.5-14.5); WBC 2.7 thou/uL (4.0-11.0)
[2021-05-10 10:24] LABS: POTASSIUM 3.9 mmol/L (3.5-5.1)
[2021-05-10 10:29] LABS: CREATININE 2.2 mg/dL (0.6-1.0)
--- NOTE | 2021-05-10 11:34 | NUR ---
Assumed pt care at 7am.Pt in bed resting without c/o. Assessment completed.vss Bradycardiac per carciac monitor. Pt took bed bath by OT assist.Kept npo for gi procedure scheduled for 1pm today.Iv meds given as ordered and well tolerated.No verbal c/o. Will continue to monitor.
--- NOTE | 2021-05-10 16:42 | NUR ---
PT HAD EGD AND COLONOSCOPY THIS DAY. CM FOLLOWING REGARDING DC PLANNING.
[2021-05-10 19:22] VITALS: BP 119/62
[2021-05-11] VITALS: BP 119/52
--- NOTE | 2021-05-11 01:17 | NUR ---
ASSUMED CARE OF PT AT 05/10/21 AT 1930. A&OX4. IS ON ROOM AIR. REPORTED ABD PAIN THAT IS BEING MANAGED WITH PAIN MEDS & OTHER THERAPUETIC TECHNIQUES. IS UP WITH STANDBY ASSIST, LANA, WALKER. FALL PRECAUTIONS & HOURLY ROUNDING CONTINUED THIS SHIFT. LABS & VITALS REVIEWED. PT IS STABLE. IS SLEEPING & HAS BEEN ASLEEP FOR MOST OF THIS SHIFT THUS FAR. WILL CONTINUE TO MONITOR. CALL LIGHT WITHIN REACH.
[2021-05-11 04:00] VITALS: BP 121/52
[2021-05-11 07:00] VITALS: BP 112/52
[2021-05-11 12:00] VITALS: BP 110/51
[2021-05-11 16:00] VITALS: BP 118/47
--- NOTE | 2021-05-11 16:00 | NUR ---
PT HAD EGD/COLONOSCOPY YESTERDAY. PT SAW PT AND INDICATED THAT SHE WOULD LIKELY BE ABLE TO DC HOME TO SELF CARE ONCE MEDICALLY STABLE. SHOULD SHE NEED HH CONTACT [facility] AT AND FAX TO . PT IS CURRENTLY WITHOUT A PCP. CM FOLLOWING SHOULD ANY DC NEEDS ARISE.
--- NOTE | 2021-05-11 20:24 | NUR ---
Assumed pt this am, vs stable. minimal pain noted. Pt had several bm d/t lactulose. Pt is continent, poc followed with no signs or verbalizations of distress noted. Maintained on clear liquids. Endorsed to the night nurse.
[2021-05-11 20:29] VITALS: BP 120/39
[2021-05-12 00:17] VITALS: BP 121/53
--- NOTE | 2021-05-12 03:56 | NUR ---
Pt. rested quietly at intervals during the night when checked on during frequent rounds. She offers no c/o pain. Incontinent of urine. Assisted up to the bedside comode with one. Had a small loose stool. Bed alarm is on.
[2021-05-12 08:40] VITALS: BP 99/48
[2021-05-12 08:49] VITALS: BP 113/55
[2021-05-12 12:42] VITALS: BP 123/59
--- NOTE | 2021-05-12 15:51 | NUR ---
Assumed pt care tis am, vs stable. Pain on her knees was noted, as per the pt knee repair is scheduled w/ Dr. Davis this May. Though pain medication was never issued to address the knee pain. Pt is up ad ana cristina and able to use the commode. POC followed,
[2021-05-12 16:16] LABS: HEMATOCRIT 23.7 % (37.0-47.0); HEMOGLOBIN 7.4 gm/dL (12.0-15.0); MCH 30.3 pg (26.0-34.0); MCV 97.7 fL (80.0-100.0); RBC 2.43 mil/uL (4.20-5.00); RDW 14.4 % (10.5-14.5); WBC 4.6 thou/uL (4.0-11.0)
[2021-05-12 16:36] VITALS: BP 122/64
[2021-05-12 19:57] VITALS: BP 129/51
[2021-05-13 05:32] LABS: WBC 3.5 thou/uL (4.0-11.0)
[2021-05-13 05:34] LABS: HEMATOCRIT 20.8 % (37.0-47.0); HEMOGLOBIN 6.8 gm/dL (12.0-15.0); MCH 31.7 pg (26.0-34.0); MCHC 32.8 g/dL (28.0-37.0); MCV 96.7 fL (80.0-100.0); RBC 2.15 mil/uL (4.20-5.00)
[2021-05-13 05:37] LABS: CALCIUM 7.7 mg/dL (8.5-10.1); CREATININE 1.4 mg/dL (0.6-1.0); POTASSIUM 3.9 mmol/L (3.5-5.1)
--- NOTE | 2021-05-13 06:00 | NUR ---
Pt. rested quietly at intervals during the night when checked on during frequent rounds. Po tylenol given (see emar) for c/o knee pain with some relief noted. Bed alarm is on.
[2021-05-13 10:57] VITALS: BP 111/59; BP 118/50
[2021-05-13 17:06] VITALS: BP 109/62
--- NOTE | 2021-05-13 17:48 | NUR ---
Assumed pt care this am vs stable. Hgb was 6.8 at 5 am, MD informed trasnfused 1 unit of PRBC no reactionsw noted. Knee pain was managed with topical pain medication partial relief is noted and preferred by the pt. Pt had a complete bath in the pm. Diet and medications are tolerated well. POC followed with no signs or vrbalizations of distress noted. Stayed on the recliner in the afternoon and had her meals. Endorsed to the night nurse.
[2021-05-13 18:14] LABS: HEMATOCRIT 27.3 % (37.0-47.0); HEMOGLOBIN 8.7 gm/dL (12.0-15.0)
[2021-05-13 19:28] VITALS: BP 111/55; BP 112/56
[2021-05-14 01:07] VITALS: BP 107/52
--- NOTE | 2021-05-14 03:16 | NUR ---
PT CARE ASSUMED WITH PT IN CHAIR.PT IS A/O X4.PT IS UP WITH X1 ASSIST WITH WALKER AND GAIT BELT TO [facility].PT IS ON ROOM AIR.PT C/O KNEE PAIN AND DICLOFENAC GEL.IV ACCESS LT AC WITH D5 AT 100CC/HR.WILL CONTINUE TO MONITOR
[2021-05-14 05:23] VITALS: BP 114/60
[2021-05-14 05:23] LABS: HEMATOCRIT 25.7 % (37.0-47.0); HEMOGLOBIN 8.2 gm/dL (12.0-15.0); MCV 93.7 fL (80.0-100.0); RBC 2.75 mil/uL (4.20-5.00); RDW 15.1 % (10.5-14.5); WBC 4.2 thou/uL (4.0-11.0)
[2021-05-14 05:36] LABS: CALCIUM 7.6 mg/dL (8.5-10.1); CREATININE 1.3 mg/dL (0.6-1.0); POTASSIUM 4.3 mmol/L (3.5-5.1)
[2021-05-14 08:05] VITALS: BP 109/61
--- NOTE | 2021-05-14 12:07 | NUR ---
ASSUMED PT CARE THIS AM. PT A&OX4, ABLE TO MAKE NEEDS KNOWN. PATIENT DENIES NUMBNESS OR TINGLING. DICLOFENAC CREAM APPLIED TO PATIENTS KNEES. PATIENT AMBULATESE WITH ASSIST AROUND ROOM. IV REMAINS PATENT, FLUIDS INFUSING. FALL PRECAUTIONS ARE IN PLACE, CALL LIGHT WITHIN REACH.
[2021-05-14 12:21] VITALS: BP 109/61
--- NOTE | 2021-05-14 12:22 | NUR ---
CARE TEAM INDICATED THAT PT MAY BE MEDICALLY STABLE TO DC HOME THIS DAY. CM MET WITH PT AT BEDSIDE AND DISCUSSED POSSIBLE DC HOME WITH HOME HEALTH SERVICES. PT ASKED THAT CM CALLED AND DISCUSS THAT WITH HER DTR. PT INDICATED THAT SHE HAD HOPED TO GO SOMEWHERE OF HER OWN UPON DC. CM INDICATED THAT AT THIS TIME CARE TEAM HAS INDICATED THAT SHE SHE WOULD BE SAFE TO RETURN TO [facility] WITH DTR WITH HOME HEALTH. CM INDICATED THAT CM COULD PROVIDE INFO ON AL/IL SETTINGS SHOULD PT AND DTR WISH TO EXPLORE THESE OPTIONS UPON DC. CM SPOKE WITH PT'S DTR AND SHE IS AGREEABLE WITH HH SERVICES UPON DC. THEY INIDCATED NO PREFEREANCE FOR PROVIDER. CM TO SEND REFERRAL TO [facility] FOR REVIEW FOR POSSIBLE ADMISSION. PT'S DTR INDICATED SHE GETS OFF WORK AROUND 1500.
[2021-05-14] MEDS ORDERED: ACETAMINOPHEN325 M1 PO (13:40)
[2021-05-14] MEDS ORDERED: METOPROLOL SUCC25 M1 PO (13:40)
[2021-05-14] MEDS ORDERED: CEFUROXIME250 MG PO (13:59)
[2021-05-14 16:20] VITALS: BP 111/57
--- NOTE | 2021-05-15 11:07 | PATH ---
[facility] [place] [address] PATHOLOGY RPT PROCEDURE Name: LEVIALEXIAGÉNESIS Room #: 464-P DIS IN M.R.#: [id number] Admission: 05/08/21 Date of : 47 Discharge: 05/14/21 Report #: [id number] Path Case #: [id number] [facility] Accession Number: [id number] . 01 Material submitted: . PART A: gastrointestinal site - GASTRIC BIOPSY- R/O H. PYLORI PART B: gastrointestinal site - GASTRIC ULCERATION BIOPSY- R/O CANCER . 01 Clinical history: . GASTRITIS, ARF ABDOMINAL PAIN, CIRRHOSIS OF LIVER, MELENA . 02 Diagnosis: A. Gastric mucosa, gastric, rule out H. pylori, endoscopic biopsy: - DIFFUSELY INFILTRATIVE POORLY DIFFERENTIATED ADENOCARCINOMA. - Background gastric mucosa showing features of reactive gastropathy without any intestinal metaplasia or atrophy. - Negative for Helicobacter pylori (properly controlled immunohistochemical stain performed). . B. Gastric ulceration, rule out cancer, endoscopic biopsy: - DIFFUSELY INFILTRATIVE POORLY DIFFERENTIATED ADENOCARCINOMA. - Background gastric mucosa showing features of reactive gastropathy without any intestinal metaplasia or atrophy. - Negative for Helicobacter pylori (properly controlled immunohistochemical stain performed). (IUV:pit; 05/14/2021) QTP 05/14/2021 1533 Local . 02 Comment: Co-review: Tool Room Supervisor slides were co-reviewed by Dr. Nikki Schulte who concurs with my diagnosis. . Findings of this case are discussed with Dr. Shahriar Stockton (covering for Dr. Fabian Reyes) at 3:20 pm on 05/14/2021. (IUV:pit; 05/14/2021) . 02 Electronically signed: . Guerline Leger MD, Pathologist NPI- [id number] . 01 Gross description: . A. The specimen is received in formalin, labeled "Bere Sims, gastric BX". Received are 3 segments of pale abreu tissue ranging in size from 0.3 to 0.4 cm in maximum dimensions. The specimen is submitted entirely in cassette A1[place] [address] PATHOLOGY RPT PROCEDURE Name: BERE SIMS Room #: 464-P DIS IN M.R.#: [id number] Admission: 05/08/21 Date of : 47 Discharge: 05/14/21 Report #: [id number] Path Case #: [id number] B. The specimen is received in formalin, labeled "Levi, Melverine, gastric ulceration BX". Received are multiple segments of pale abreu tissue ranging in size from 0.2 to 0.5 cm in maximum dimensions. The specimen is submitted entirely in cassette B1.([facility]; 05/11/2021) [facility] 05/11/2021 1117 Local . 02 Pathologist provided ICD-10: C16.9 . 02 CPT . 502141, 394455, N91479 Specimen Comment: A courtesy copy of this report has been sent to [phone], [phone] Specimen Comment: [phone] Specimen Comment: Report sent to / DR RODRIGUEZ Specimen Comment: A duplicate report has been generated due to demographic updates. Performed at: [address], [place] [id number] MD Josh Patel MD Phone: [phone] Performed at: [address] [id number] MD Guerline Leger MD Phone: [phone]
== END 2021-05-14 19:45 | disposition home health service (06) | DRG 374 ==
LOC: ER 16:53 → 4W 19:35 → EROBS 19:35 → 4W 22:35
PROVIDERS: Anesthesiology; Emergency Medicine; Nurse Practitioner; Specialist; ADMIT Internal Medicine; ATTEND Internal Medicine
DX: C16.9 Malignant neoplasm of stomach, unspecified (principal); K29.01 Acute gastritis with bleeding; N17.0 Acute kidney failure with tubular necrosis; G92.8 Other toxic encephalopathy; N18.4 Chronic kidney disease, stage 4 (severe); I13.0 Hypertensive heart and chronic kidney disease with heart failure and stage 1 through stage 4 chronic kidney disease, or unspecified chronic kidney disease; N30.00 Acute cystitis without hematuria; I50.32 Chronic diastolic (congestive) heart failure; D62 Acute posthemorrhagic anemia; I48.20 Chronic atrial fibrillation, unspecified; K76.6 Portal hypertension; K74.60 Unspecified cirrhosis of liver; K72.90 Hepatic failure, unspecified without coma; B18.2 Chronic viral hepatitis C; M17.0 Bilateral primary osteoarthritis of knee; K80.20 Calculus of gallbladder without cholecystitis without obstruction; I08.1 Rheumatic disorders of both mitral and tricuspid valves; L53.9 Erythematous condition, unspecified; R53.81 Other malaise; I48.0 Paroxysmal atrial fibrillation; K31.89 Other diseases of stomach and duodenum; Z20.822 Contact with and (suspected) exposure to COVID-19; K64.4 Residual hemorrhoidal skin tags; Z86.16 Personal history of COVID-19; Z86.19 Personal history of other infectious and parasitic diseases; I25.2 Old myocardial infarction; Z88.8 Allergy status to other drugs, medicaments and biological substances; Z23 Encounter for immunization
CPT/HCPCS: 10045; 62110; 62900; 70005

== ENCOUNTER 2021-05-17 17:42 | Inpatient (IN) | payer OTHER ==
[~2021-05-17] VITALS: Ht 154.9 cm; Wt 90.7 kg
[~2021-05-17 17:42] MED LIST changes: +ACETAMINOPHEN325 M1 PO; +CEFUROXIME250 MG PO; +DILTIAZEM ER180 M2 PO; +METOPROLOL SUCC25 M1 PO; +SPIRONOLACTONE25 MG PO; +TOPROL XL50 MG PO
[2021-05-17 17:43] VITALS: BP 98/55
[2021-05-17 18:19] LABS: HEMATOCRIT 30.2 % (37.0-47.0); HEMOGLOBIN 9.6 gm/dL (12.0-15.0); MCH 29.3 pg (26.0-34.0); MCHC 31.9 g/dL (28.0-37.0); PLATELET COUNT 203 thou/uL (150-400); RBC 3.28 mil/uL (4.20-5.00); RDW 15.5 % (10.5-14.5); WBC 6.2 thou/uL (4.0-11.0)
[2021-05-17 18:38] LABS: ALBUMIN 1.9 g/dL (3.4-5.0); CALCIUM 8.9 mg/dL (8.5-10.1); TOTAL BILIRUBIN 0.5 mg/dL (0.2-1.0); TOTAL PROTEIN 5.3 g/dL (6.4-8.2)
[2021-05-17 18:42] LABS: POTASSIUM 6.3 mmol/L (3.5-5.1)
[2021-05-17] MEDS ORDERED: SOFOSBUVIR-VEL1 EACH PO (18:51)
[2021-05-17] MEDS ORDERED: PROTONIX40 M2 PO (18:52)
[2021-05-17] MEDS ORDERED: DILTIAZEM ER120 MG PO (18:52)
[2021-05-17] MEDS ORDERED: DEMADEX20 MG PO (18:52)
[2021-05-17] MEDS ORDERED: POTASSIUM CHLO20 ME2 PO (18:52)
[2021-05-17] MEDS ORDERED: XARELTO20 MG PO (18:52)
[2021-05-17 19:02] LABS: MAGNESIUM 2.1 mg/dL (1.8-2.4)
[2021-05-17 19:09] LABS: ABSOLUTE NEUTROPHILS 5.8 thou/uL (1.4-8.2)
[2021-05-17 19:45] LABS: URINE BILIRUBIN NEGATIVE (Negative); URINE BLOOD NEGATIVE (Negative); URINE COLOR YELLOW; URINE GLUCOSE-RANDOM* NEGATIVE (Negative); URINE KETONES TRACE (Negative); URINE NITRITE-REFLEX NEGATIVE (Negative); URINE PROTEIN (DIPSTICK) NEGATIVE (Negative); URINE SPECIFIC GRAVITY 1.025 (1.005-1.035); URINE UROBILINOGEN 0.2 E.U./dl (0.2-1.0)
[2021-05-17 19:46] LABS: URINE LEUKOCYTES-REFLEX 1+ (Negative)
[2021-05-17 19:47] LABS: URINE CLARITY HAZY
[2021-05-17 19:56] LABS: CASTS None Seen /LPF (None Seen); CRYSTALS None Seen /LPF (None Seen); SQUAMOUS >10 Many /LPF (0-3); URINE RBC None Seen /HPF (NONE SEEN); URINE WBC-REFLEX 6-15 Few /HPF (0-5)
[2021-05-17 22:56] VITALS: BP 115/62
[2021-05-17 23:00] LABS: INR 1.07; PROTIME 11.6 Seconds (10.5-12.1)
[2021-05-18] VITALS (38 sets, daily range): BP systolic 95–126; BP diastolic 49–74
[2021-05-18 05:09] LABS: HEMATOCRIT 29.7 % (37.0-47.0); HEMOGLOBIN 9.4 gm/dL (12.0-15.0); MCH 29.2 pg (26.0-34.0); MCHC 31.7 g/dL (28.0-37.0); MCV 92.1 fL (80.0-100.0); RBC 3.22 mil/uL (4.20-5.00); RDW 15.3 % (10.5-14.5); WBC 7.1 thou/uL (4.0-11.0)
[2021-05-18 05:22] LABS: CALCIUM 8.4 mg/dL (8.5-10.1)
[2021-05-18 05:34] LABS: POTASSIUM 6.5 mmol/L (3.5-5.1)
--- NOTE | 2021-05-18 07:07 | EKG ---
[address] [place] [address] ELECTROCARDIOGRAM REPORT Name: FRANCOIS SIMS Room #: 245-P ADM IN M.R.#: [id number] Admission: 05/17/21 Attend Phys: Minesh Lloyd MD Discharge: Date of : 47 Report #: [id number] 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
--- NOTE | 2021-05-18 08:17 | NUR ---
STAT PAGED DR. JUNIOR. HR 130'S-140'.... BP 79/50S.. Patient was screaming out in pain, and is alert and oriented.
--- NOTE | 2021-05-18 08:20 | NUR ---
Nurse talked with Dr. Joyce in regards to patient current hemodynamics. Orders received.
--- NOTE | 2021-05-18 10:58 | NUR ---
Nurse called Dr. Chatman to update him on patients blood pressure and clarify order for maintanence fluid, lasix IVP, and central line placement. He expressed to keep bicarb gtt as ordered, okay to give lasix as ordered, and okay to place central line. He expressed he understood the blood pressure.
[2021-05-18 11:30] LABS: CALCIUM 8.4 mg/dL (8.5-10.1); CREATININE 3.2 mg/dL (0.6-1.0)
--- NOTE | 2021-05-18 11:35 | NUR ---
Nurse called patients spokes person for consent on a central line. Nurse explained risks/benefits to her, she expressed she gave full consent for line placement. Chhaya Chery RN verified consent from spokes person too.
--- NOTE | 2021-05-18 12:52 | NUR ---
Nurse updated Dr. Chatman on patient labs, urine output, and current status. No new orders at this time.
--- NOTE | 2021-05-18 13:35 | NUR ---
VAT CONSULTED FOR CVAD, OK WITH NEUPHROLOGY. PT'S LABS,MEDS,HX,ORDER AND CONSENT VERIFIED. RIJ WAS WIDELY PATENT WITH USG. 6 FR TL POWER JACC 25CM INSERTED TO 10CM EXTERNAL. PT TOLERATED WELL. STAT CXR ORDERED
--- NOTE | 2021-05-18 13:46 | NUR ---
CXR CONFIRMED RIJ AT [facility], RELEASED FOR IMMEDIATE USE PER PROTOCOL TO ANEL MEYERS
--- NOTE | 2021-05-18 15:37 | NUR ---
Chart review. DX pneumoperitoneum. Discussed during los and unit rounds. She resting in bed with eyes closed. She was her in 05/09/21, and dc home with yue danielle . Prior to hospital stay she was independent, lives at home wit her daughter ilene # [phone]. Has walker, manage own medication. Cm spoke with ilene who on her way to visit, her dad is also in hospital in [place], little over whelming for her having both parents in the hospital at the same time. Active listening and support during visit. No anticipated dc over the weekend, will cont following as needed for dc needs.
[2021-05-18 16:28] LABS: ALBUMIN 1.5 g/dL (3.4-5.0); CALCIUM 8.4 mg/dL (8.5-10.1); CREATININE 3.4 mg/dL (0.6-1.0); PHOSPHORUS 3.7 mg/dL (2.5-4.9)
--- NOTE | 2021-05-18 18:30 | NUR ---
Nurse had noted no urine output this afternoon. Bladder scan performed three times with results ranging 250ml-280ml. This was relayed to physician at 1608 who expressed to replaced lin. Prior to replacing lin, nurse irrigated tubing to see if it was clogged. 40ml of urine flushed into the lin, but no fluid came out. When nurse attempted to pull back gently, the lin tubing would collapse. Three nurses attempted to place a new lin catheter. Daughter was updated and informed of the reason for this. Patient is very uncomfortable when laying flat. Pain medication given prior to laying her flat. Patient did not tolerate well, however her urethra was visualized and the lin was inserted, but would not advance. Unsuccessful attempts x3 different nurses. This was informed to Dr. Chatman, who entered the room and updated patients daughter. He expressed to consult urology to assist with this. Urology was consulted and situation was explained. She came and placed a new lin without difficulty. No urine output noted in bag. Nurse performed another bladder scan and it showed 213ml in bladder, the pad was a bit wet from inbetween lin attempts, fluid came out. Urology expessed she felt it was something else that was being bladder scanned as her bladder was empty, but if we really needed or were conscerned about it, we could ask the physician for an ultrasound to confirm placement. This was relayed to oncoming staff for continuation of care.
[2021-05-19] VITALS (68 sets, daily range): BP systolic 96–126; BP diastolic 49–71
--- NOTE | 2021-05-19 03:49 | NUR ---
ASSUMED CARE OF PT AT 1900. CALLED PT DAUGHTER AT 2012 TO UPDATE ON PT STATUS. DAUGHTER DID NOT ANSWER. MESSAGE LEFT TO CALL BACK AT CONVENIENCE
--- NOTE | 2021-05-19 03:55 | NUR ---
PT TACHYCARDIC WITH RATE OF 160. GRANULATING BLENDER MARICRUZ WINN CONTACTED AT 2111. ORDERS GIVEN TO START AMIODARONE GTT. WILL CONTINUE TO MONITOR AND FOLLOW POC.
[2021-05-19 05:31] LABS: MCHC 32.6 g/dL (28.0-37.0); RBC 2.02 mil/uL (4.20-5.00)
[2021-05-19 05:33] LABS: MCH 29.5 pg (26.0-34.0); MCV 90.5 fL (80.0-100.0); WBC 6.6 thou/uL (4.0-11.0)
[2021-05-19 05:40] LABS: HEMATOCRIT 18.3 % (37.0-47.0)
[2021-05-19 05:51] LABS: ALBUMIN 0.8 g/dL (3.4-5.0); MAGNESIUM 1.3 mg/dL (1.8-2.4); PHOSPHORUS 2.2 mg/dL (2.5-4.9)
[2021-05-19 06:10] LABS: CALCIUM 6.1 mg/dL (8.5-10.1); CREATININE 2.4 mg/dL (0.6-1.0); POTASSIUM 3.7 mmol/L (3.5-5.1)
[2021-05-19 06:15] LABS: HEMOGLOBIN 7.5 gm/dL (12.0-15.0)
[2021-05-19 06:16] LABS: HEMATOCRIT 23.4 % (37.0-47.0); MCHC 32.1 g/dL (28.0-37.0); MCV 90.4 fL (80.0-100.0); RBC 2.58 mil/uL (4.20-5.00); RDW 15.3 % (10.5-14.5); WBC 8.4 thou/uL (4.0-11.0)
[2021-05-19 06:20] LABS: CALCIUM 6.7 mg/dL (8.5-10.1); CREATININE 2.8 mg/dL (0.6-1.0); POTASSIUM 4.3 mmol/L (3.5-5.1)
--- NOTE | 2021-05-19 18:02 | NUR ---
PT NOT PROGRESSING TOWARDS D/C GOALS AT THIS TIME. PT CURRENTLY GETTING 60MG LASIX TID WITH 170ML OF URINARY OUTPUT IN THE LAST 24HRS VIA SANCHEZ CATH. PT BLADDER SCANNED SHOWING VERY MINIMIAL RESIDUALS. PT REMAINS TACHYCARDIC DESPITE AMIO GTT. PT BREATHING NORMALLY ON ROOM AIR, IS ALERT TO SELF AND HAS BEEN DROWSY MOST OF THE DAY WHEN NOT AWAKENED. PT FAMILY SPOKE TO DR. HAMILTON TODAY AT BEDSIDE, DAUGHTER AND GRANDDAUGHTER STOPPED BY TO VISIT WITH PT. PT BEING TRANSFERRED TO CCU ROOM 212, REPORT CALLED.
--- NOTE | 2021-05-19 18:38 | NUR ---
PT ADMIT TO CCU AT 1838. AMIO GTT IN PLACE. EX-LAP DRESSING C/D/I. COLOSTOMY WITH MINIMAL SERO-SANG DRAINAGE, ABDOMIN IS FIRM WITH HYPOACTIVE BOWEL SOUNDS. PT C/O ABD PAIN. RIGHT IJ IN PLACE. OLIGURIC WITH SANCHEZ.
--- NOTE | 2021-05-19 23:12 | NUR ---
ASSUMED PT CARE AT 1900, PT WAS A TRANSFER FROM ICU, ASSESSMENTS CHARTED, ABDOMEN IS FIRM AND DISTENDED ; HYPOACTIVE BOWEL SOUNDS; ABDOMINAL PAIN 10/10; PAIN MEDS GIVEN WITH NO RELIEF, PERSONAL COMPUTER NETWORK ENGINEER NOTIFIED, REMAINS ON AFIB HR BETWEEN 110-120S, ORDERS NOTED TO D/C AMIODARONE, PERSONAL COMPUTER NETWORK ENGINEER NOTIFIED, PT REMAINS NPO, WILL CONTINUE TO MONITOR PT PER POC
[2021-05-20 03:48] VITALS: BP 100/62
[2021-05-20 05:29] LABS: WBC 7.9 thou/uL (4.0-11.0)
[2021-05-20 05:31] LABS: HEMOGLOBIN 8.2 gm/dL (12.0-15.0); MCHC 32.7 g/dL (28.0-37.0); MCV 88.8 fL (80.0-100.0); RBC 2.81 mil/uL (4.20-5.00)
[2021-05-20 05:46] LABS: ALBUMIN 1.1 g/dL (3.4-5.0); CALCIUM 7.9 mg/dL (8.5-10.1); CREATININE 4.2 mg/dL (0.6-1.0); PHOSPHORUS 4.4 mg/dL (2.6-4.7); POTASSIUM 5.6 mmol/L (3.5-5.1)
[2021-05-20 08:00] VITALS: BP 105/64
[2021-05-20 11:03] VITALS: BP 122/53
[2021-05-20 15:27] VITALS: BP 104/57
--- NOTE | 2021-05-20 19:54 | NUR ---
PT IS AXOX2-3; DIFFICULTY VERBALIZING THAT SHE IS AT THE HOSPITAL AND WHAT HER SITUATION IS, BUT ABLE TO VERBALIZE THAT SHE IS IN PAIN. VS AI101g, AFEBRILE, AFIB ON THE MONITOR. PT IS CURRENTLY ON AMIO GTT AT 0.5, SODIUM BICARB AT 100ML. DR JUNIOR CONSULTED. CONTINUE ABX THERAPY, AND FLUIDS, MONITOR ELECTROLYTES. FALL PRECAUTIONS IN PLACE. NO CONCERNS AT THIS TIME.
[2021-05-20 20:05] VITALS: BP 111/60
[2021-05-21] VITALS (10 sets, daily range): BP systolic 77–126; BP diastolic 39–103
--- NOTE | 2021-05-21 03:31 | NUR ---
ASSUMED PT CARE AT 1900,PT IS AWAKE, ALEERT AND ORIENTEDX3, DAUGHTER AT BEDSIDE, CONCERNED ABOUT NPO STATUS AND REQUESTING ICE CHIPS, EXPLAINED TO PT AND DAUGHTER WHY PT IS NPO, REMAINS AFIB ON TELE, HR IN THE 110S, REMAINS ON 2L, INCREASED EDEMA ON BILATERAL, LOWER EXTREMINTY, ABDOMEN REMAINS, HYPOACTIVE, FIRM AND DISTENDED, COLOSTOMY INTACT WITH SMALL SEROSANGUINOUS DRAINAGE, NO BM YET, TREATED FOR GENERALIZED PAIN OF A 10/10, PT RESTING IN BED IN NO DISTRESS, FREQUENT ROUNDING AND MONITORING, REMAINS ON CARDIZEM GTT AT 0.5, WILL CONTINUE TO MONITOR PT PER POC
[2021-05-21 04:36] LABS: CALCIUM 7.6 mg/dL (8.5-10.1); CREATININE 4.4 mg/dL (0.6-1.0); MAGNESIUM 2.2 mg/dL (1.8-2.4); PHOSPHORUS 4.6 mg/dL (2.5-4.9); POTASSIUM 5.4 mmol/L (3.5-5.1)
[2021-05-21 04:47] LABS: HEMATOCRIT 23.6 % (37.0-47.0); HEMOGLOBIN 7.7 gm/dL (12.0-15.0)
[2021-05-21 04:50] LABS: MCHC 32.7 g/dL (28.0-37.0); MCV 88.7 fL (80.0-100.0); RBC 2.66 mil/uL (4.20-5.00); RDW 15.1 % (10.5-14.5); WBC 9.3 thou/uL (4.0-11.0)
--- NOTE | 2021-05-21 06:51 | O ---
[facility] [place] [address] [place] [address] OPERATIVE REPORT Name: FRANCOIS SIMS Room #: 212-P ADM IN M.R.#: [id number] Admission: 05/17/21 Attend Phys: Minesh Lloyd MD Discharge: Date of : 47 Report #: [id number] THIS REPORT FOR: cc: FAM - Family physician unknown FAM - Family physician unknown Osmel Becerra MD ~ DATE OF SERVICE: 05/17/2021 PREOPERATIVE DIAGNOSIS: Perforated viscus. POSTOPERATIVE DIAGNOSES: Perforation of right colon. OPERATION: Exploratory laparotomy with right hemicolectomy and ileostomy. SURGEON: Osmel Becerra MD ANESTHESIA: General. ESTIMATED BLOOD LOSS: 150 mL SPECIMENS: Right colon. DRAINS: None. DESCRIPTION OF PROCEDURE: After informed consent was obtained, the patient was brought to the operating room and placed supine. SCDs were placed and working, preoperative antibiotics had already been administered, general anesthesia was induced, Kim catheter was placed, the abdomen was prepped and draped in the usual sterile fashion. An incision was made in the epigastrium from the xiphoid to the umbilicus. Fascia was incised. Immediately upon incising the fascia, there was a green of air. Self-retaining retractor was placed. I began exploration. There was a brown/yellow fluid throughout the abdomen. This was all suctioned out. The small bowel was normal. The left colon was normal. I then examined the stomach. It did not have any areas of perforation nor to the duodenum. The liver was nodular and consistent with the CT findings. I then examined the right colon. In the hepatic flexure, there was a 2 mm hole where the bowel contents was leaking from. I began by mobilizing the right colon medially. It was grasped and retracted medially. The white line of Toldt was incised and this allowed for medial mobilization. The lateral attachments to the hepatic flexure were then taken down. I then stapled off the colon just distal to the hole. The mesentery was [facility] [address] [place] [address] OPERATIVE REPORT Name: FRANCOIS SIMS Room #: [address] [place] [address] IN M.R.#: [id number] Admission: 05/17/21 Attend Phys: Minesh Lloyd MD Discharge: Date of : 47 Report #: [id number] then ligated using the LigaSure device. There was excellent hemostasis. I freed up approximately 10 cm of the distal ileum. Specimen was then sent off. I made a hole in the right upper abdomen for the ileostomy to come out and the fat. The fascia was incised and the terminal ileum was brought out through this hole. The abdomen was copiously irrigated with normal saline to try to suction out all of the remaining spillage. The fascia was closed with a 0 PDS in running fashion. Skin was closed with carrie. Ileostomy was then fashioned using a Cassidy type ileostomy. Sterile dressings were applied. COMPLICATIONS: None. DISPOSITION: The patient was taken to recovery in satisfactory condition. <ELECTRONICALLY SIGNED> By: Osmel Becerra MD 05/21/21 0651 [phone] Osmel Becerra MD /nt
--- NOTE | 2021-05-21 18:21 | NUR ---
Patient is A/OX2 with confusion. BP has been low all day. 91/55. AFIB on the monitor. c/o pain but prn pain medication is effective. Patient has a lin that is patent with minimal output all day. IV push lasix given today per orders. Continues on AMIO GTT. Will continue with POC; iv fluids and abt.
[2021-05-22] VITALS (7 sets, daily range): BP systolic 79–104; BP diastolic 47–61
[2021-05-22 11:20] LABS: ALBUMIN 1.1 g/dL (3.4-5.0); CALCIUM 7.8 mg/dL (8.5-10.1); CREATININE 4.8 mg/dL (0.6-1.0); PHOSPHORUS 5.4 mg/dL (2.6-4.7)
[2021-05-23 04:34] VITALS: BP 88/47
[2021-05-23 05:02] LABS: ALBUMIN 1.1 g/dL (3.4-5.0); CALCIUM 7.8 mg/dL (8.5-10.1); CREATININE 4.9 mg/dL (0.6-1.0); PHOSPHORUS 5.7 mg/dL (2.5-4.9); POTASSIUM 5.2 mmol/L (3.5-5.1)
--- NOTE | 2021-05-23 06:47 | NUR ---
ASSUMED CARE OF PT AT 1900. PT ASSESSED TO BE AOX3 WITH SOME FORGETFULNESS. PT ON AMIO DRIP FOR CONTROL OF AFIB. PT SEEMS TO BE GETTING ABOVE 100, WILL PASS ON TO DAY SHIFT RN. WAS CONCERNED THROUGHOUT THE EARLY AFTERNOON ABOUT PT BLOOD PRESSURE DUE TO HER FLUID IMBALANCE AND CKD. TALKED WITH LILIANE ALONZO AND GAVE HER A 500 ML BOLUS OF NS, WHICH SLIGHTLY ELEVATED BP. OXYGEN STABLE ON 2L PER NC. BLOOD SUGAR STABLE. CONCERNED THAT HYPOTENSIVE PT WITH FLUID IMBALANCE WITH CKD MAY NEED FURTHER MANAGEMENT OF CARE. MIDLINE INCISION C/D/I. WILL CONTINUE TO MONITOR, DID NOT VOCALIZE ANY PAIN.
[2021-05-23 09:05] VITALS: BP 96/53
--- NOTE | 2021-05-23 11:46 | PATH ---
[facility] [address] [place] [address] PATHOLOGY RPT PROCEDURE Name: BERE SIMS Room #: 212-P ADM IN M.R.#: [id number] Admission: 05/17/21 Date of : 47 Discharge: Report #: [id number] Path Case #: [id number] [facility] Accession Number: [id number] . 01 Material submitted: . colon - RIGHT COLON. Modifiers: right . 01 Clinical history: . RIGHT COLON WITH PERFORATION . 02 Diagnosis: Terminal ileum, appendix and large intestine, right colon with perforation, resection: - 0.3 cm transmural defect consistent with perforation. - Marked acute serositis. - Focal ischemic changes within surface epithelium in the vicinity of perforation. - Negative for dysplasia or malignancy. - Appendix showing no significant diagnostic abnormalities and focal fibrous obliteration. - Additional segment of small bowel showing marked congestion. - Margins of resection showing viable mucosa. . (IUV:mml; 05/22/2021) QLM 05/22/2021 1441 Local . 02 Electronically signed: . Guerline Leger MD, Pathologist NPI- [id number] . 01 Gross description: . The specimen is received in formalin, labeled "Bere Sims, right colon" and consists of a segment of right colon (5.0 cm in length by 0.8 cm diameter) with a moderate amount of attached fat, attached appendix (6.0 cm in length by 0.8 cm diameter) and attached terminal ileum (3.0 cm in length x 2.3 cm in diameter). The serosa is purple-godfrey, dusky and hemorrhagic and displays a godfrey-yellow area of discoloration (inked green, 1.3 x 1.0 cm) which surrounds a transmural defect (0.3 x 0.2 cm) that comes to within 3.3 cm from the distal margin (inked red), 11.3 cm from the proximal margin (inked black) and roughly 5.5 cm from the mesenteric margin (inked orange). The mucosa near the transmural defect is godfrey-brown, slightly granular and edematous (6.0 x 3.4 cm). The serosa on the proximal 3.3 cm in length of appendix has been previously detached and sectioning reveals unremarkable cut surfaces with an average wall thickness of 0.2 cm. Also received in the same container is a is an unoriented irregular portion of small bowel (4.3 cm in length by 2.0 cm diameter) with a [facility] [address] [place] [address] PATHOLOGY RPT PROCEDURE Name: LEVIALEXIAGÉNESIS Room #: 212-P ADM IN M.R.#: [id number] Admission: 05/17/21 Date of : 47 Discharge: Report #: [id number] Path Case #: [id number] minimal amount of attached fat and godfrey-abreu and dusky serosa. The surgical margins are differentially inked black and blue. The mucosa is unremarkable. [employer] sections are submitted as follows: A1: Proximal, distal and mesenteric margin from colon segment mentioned first, submitted en face, represented A2: Transmural defect, entirely submitted A3: Granular mucosa from colon segment mentioned first, represented A4: Appendix, represented A5: Proximal and distal margins from colon segment mentioned second, submitted en face, represented A6: Full-thickness sections of wall from colon segment mentioned second, represented ([place]; 05/21/2021) DKA/DKA 05/22/2021 1445 Local . 02 Pathologist provided ICD-10: K65.8, K63.1 . 02 CPT . 617424 Specimen Comment: A courtesy copy of this report has been sent to [phone], [phone] Specimen Comment: [id number] Specimen Comment: Report sent to , DR FUNK Specimen Comment: A duplicate report has been generated due to demographic updates. Performed at: 01 [facility] [address] [place] [address] [address], [place] [id number] MD Josh Patel MD Phone: [phone] Performed at: [address] [id number] MD Guerline Leger MD Phone: [phone]
[2021-05-23 12:45] VITALS: BP 89/55
[2021-05-23 16:00] VITALS: BP 100/70
--- NOTE | 2021-05-23 16:28 | NUR ---
spoke with patient regarding post acute care. Patient living with dtr captain's assistant and rec HH care via [facility]. Patient in agreement of need for post acute care. She has been at [facility] in past. Faxed referral to [facility] for review. Sp with dtr regarding discussion. She states patient is not stable to go anywhere at this time. She was agreeable to referral but will review [facility] skilled list in her room.
[2021-05-23 19:06] VITALS: BP 106/62
[2021-05-24 05:31] VITALS: BP 97/59
[2021-05-24 06:41] LABS: HEMATOCRIT 25.4 % (37.0-47.0); HEMOGLOBIN 8.2 gm/dL (12.0-15.0); MCH 28.6 pg (26.0-34.0); MCHC 32.3 g/dL (28.0-37.0); MCV 88.6 fL (80.0-100.0); RBC 2.87 mil/uL (4.20-5.00); RDW 15.4 % (10.5-14.5); WBC 14.4 thou/uL (4.0-11.0)
[2021-05-24 06:53] LABS: CALCIUM 7.8 mg/dL (8.5-10.1); CREATININE 5.1 mg/dL (0.6-1.0); MAGNESIUM 2.2 mg/dL (1.8-2.4); PHOSPHORUS 5.9 mg/dL (2.5-4.9); POTASSIUM 4.6 mmol/L (3.5-5.1)
[2021-05-24 07:20] VITALS: BP 98/47
--- NOTE | 2021-05-24 09:45 | NUR ---
pt resting quietly in room with q 2 hr and prn turns, edema remains firm except in left hand is wnl, lin ostomy remain intact and draining, vss with midodrine started, no c/o pain, report given to next shift to con't with ppoc.
[2021-05-24 11:35] VITALS: BP 98/50
[2021-05-24 15:25] VITALS: BP 93/61
[2021-05-24 19:37] VITALS: BP 105/72
--- NOTE | 2021-05-24 20:24 | NUR ---
PT IS AXOX4, PLEASANT; VS HR 110-120s, AFEBRILE, AFIB ON THE MONITOR. PT IS ON BEDREST, DENIES PAIN, REMAINS EDEMATOUS FROM ABDOMEN DOWN, WITH SOME EDEMA IN BUE. PT TOLERATING CLEAR LIQUID DIET, ENJOYS RED JELLO AND CARVAJAL ICES. MONITORING SUCTION AND COLOSTOMY, OUTPUT IS RED TINGED FROM FOOD. WILL CONTINUE TO ASSESS COLORATION. PT IS SLOWLY PROGRESSING TOWARDS GOALS OF A D/C TO FACILITY. DR JUNIOR CONSULTED. CASE MGMT CONSULTED. FALL PRECAUTIONS IN PLACE. NO CONCERNS AT THIS TIME.
[2021-05-25 04:09] VITALS: BP 104/74
[2021-05-25 04:55] LABS: CALCIUM 7.8 mg/dL (8.5-10.1); CREATININE 5.1 mg/dL (0.6-1.0); PHOSPHORUS 6.2 mg/dL (2.5-4.9); POTASSIUM 4.4 mmol/L (3.5-5.1)
[2021-05-25 07:25] VITALS: BP 90/58
[2021-05-25 11:10] VITALS: BP 100/66
[2021-05-25 15:30] VITALS: BP 91/56
--- NOTE | 2021-05-25 17:53 | NUR ---
[facility] denied patient as she denied therapy 05/24. Patient recently has worked with therapy. Will request a reeval from [facility]. No weekend dc anticipated.
[2021-05-25 19:33] VITALS: BP 105/60
[2021-05-26 04:20] VITALS: BP 94/54
[2021-05-26 07:22] LABS: ALBUMIN 1.1 g/dL (3.4-5.0); CREATININE 5.6 mg/dL (0.6-1.0); PHOSPHORUS 6.5 mg/dL (2.5-4.9); POTASSIUM 4.4 mmol/L (3.5-5.1)
--- NOTE | 2021-05-26 07:43 | NUR ---
pt visiting with sister earlier in the evening, prn pain med given at hs for c/o abd pain, turning q 2 hours and as needed thru the noc also on low ait loss mattress with extremities elevated on pillows, chronic lin with minimal output, remains on 2l/nc will con't to monitor per ppoc.
[2021-05-26 08:30] VITALS: BP 117/80
[2021-05-26 12:00] VITALS: BP 107/69
--- NOTE | 2021-05-26 16:00 | NUR ---
PT AFEBRILE, ADEQUATE UOP, NO BM, POOR APPETITE. PT VOMITED X2. NO OBVIOUS HEMOPTYSOIS. COLOSTOMY IN PLACE WITH STOMA BEEFY RED. MIDLINE INCISION IS STAPLED, WELL APPROXIMATED AND SLIGHTLY INFLAMMED. PT AND DAUGHTER? AT BEDSIDE HAVE BEEN THOUROUGHLY UPDATED AND EDUCATED ON PT CONDITION AND POC. PT SLOWLY PROGRESSING TOWARDS POC.
[2021-05-26 17:00] VITALS: BP 117/64
[2021-05-26 19:41] VITALS: BP 100/48
[2021-05-27 05:29] VITALS: BP 104/60
[2021-05-27 06:44] LABS: ALBUMIN 1.8 g/dL (3.4-5.0); CALCIUM 8.2 mg/dL (8.5-10.1); CREATININE 5.6 mg/dL (0.6-1.0); PHOSPHORUS 6.6 mg/dL (2.5-4.9); POTASSIUM 4.1 mmol/L (3.5-5.1)
[2021-05-27 07:16] VITALS: BP 106/67
--- NOTE | 2021-05-27 08:11 | NUR ---
MID ABDOMINAL DRSG C/D/I. COLOSTOMY WITH GREEN WATERY STOOL. AFEBRILE. SHE ISTOLERATING AND LOVES ICE CHIPS. DENIES PAIN THRO NOC BUT THIS AM C/O GENERALISED PAIN-GIVEN TRAMADOL.2L/NC, NO DISTRESS NOTED
[2021-05-27 11:13] VITALS: BP 113/67
[2021-05-27 15:19] VITALS: BP 109/59
--- NOTE | 2021-05-27 17:55 | NUR ---
PT ALERT AND ORIENTED X4, SLOW TO RESPOND AT TIMES. ON1L OF OXYGEN. ABDOMINAL DRESSING CHANGED, AND COLOSTMY IN PLACE WITH YELLOW STOOL OUTPUT. URINE OUTPUT CONTINUE TO MBE LESS THAN 30ML/HR. PAIN MED GIVEN FOR ABDOMINAL PAIN POST SURGERY. SANCHEZ CATHETER IN PLACE. REPOSITION EVERY [address] PT DTR CALLED EARLY TODAY AND UPDATED ABT PT CARE.
[2021-05-27 20:15] VITALS: BP 113/65
[2021-05-28 04:45] VITALS: BP 117/61
[2021-05-28 05:41] LABS: HEMATOCRIT 20.2 % (37.0-47.0); RDW 15.8 % (10.5-14.5); WBC 9.5 thou/uL (4.0-11.0)
[2021-05-28 05:42] LABS: HEMOGLOBIN 6.9 gm/dL (12.0-15.0); MCHC 34.3 g/dL (28.0-37.0); MCV 87.5 fL (80.0-100.0); RBC 2.3 mil/uL (4.20-5.00)
[2021-05-28 06:00] LABS: CALCIUM 8.3 mg/dL (8.5-10.1); CREATININE 6.2 mg/dL (0.6-1.0); POTASSIUM 4.1 mmol/L (3.5-5.1)
[2021-05-28 07:35] VITALS: BP 86/52
[2021-05-28 11:10] VITALS: BP 92/53
[2021-05-28 15:40] VITALS: BP 94/61
--- NOTE | 2021-05-28 18:54 | NUR ---
ASSESSMENT CHARTED - MEDS PER SEP - PT GIVEVN TYLENOL AND TRAMADOL FOR PAIN WITH MODERATE EFFECT - NALINI CLEAR LIQUID DIET WITH NO CO'S OF [place]. INCISION WITH KT WELL APPROXIMATED OSTOMY DRAINING BROWN LIQUID . PT SEEN BY PHYS THERAPY PT DID PARTICIPATE IN THERAPY TODAY. PT TO HAVE 1 UNBIT PRBCS - PT DEVELOPED ANTIBODY AFTER LAST UNIT FURTHER TESTING NEEDING TO BE DONE PRIOR TO PATIENT GETTING BLOOD. NO CO'S AT THE PRESENT TIME APPEARS TO BE TRESTING COMFORTABLY.
[2021-05-28 21:21] VITALS: BP 106/61
[2021-05-28 22:54] VITALS: BP 99/61
[2021-05-29 02:00] VITALS: BP 106/60; BP 99/61
[2021-05-29 04:00] VITALS: BP 108/66
[2021-05-29 06:20] LABS: HEMATOCRIT 24.7 % (37.0-47.0); HEMOGLOBIN 8.1 gm/dL (12.0-15.0); MCH 28.5 pg (26.0-34.0); MCHC 32.8 g/dL (28.0-37.0); MCV 87.1 fL (80.0-100.0); RBC 2.84 mil/uL (4.20-5.00); RDW 15.5 % (10.5-14.5); WBC 10.2 thou/uL (4.0-11.0)
[2021-05-29 06:26] LABS: ALBUMIN 2.3 g/dL (3.4-5.0); CALCIUM 8.2 mg/dL (8.5-10.1); PHOSPHORUS 6.2 mg/dL (2.5-4.9); POTASSIUM 3.7 mmol/L (3.5-5.1)
[2021-05-29 08:31] VITALS: BP 110/73
[2021-05-29 11:50] VITALS: BP 112/62
--- NOTE | 2021-05-29 13:12 | NUR ---
Pt has been npo/liquid diet for past 11 days. Trialed diet advance emesis and moved back to clear liquids. Weak and frail. Recommend consider TPN if going to be aggressive with cares. Severe protein calorie malnutrition
--- NOTE | 2021-05-29 14:27 | NUR ---
noted monitoring creatine. Initially [facility] denied patient as she was not working with therapy. Patient has been working with therapy. Faxed referral to [facility] for reeval.
--- NOTE | 2021-05-29 14:34 | NUR ---
TOOK OVER PATIENT CARE AT 1200. ASSESSMENT CHARTED. PATIENT COMPLAINT OF GENERALIZED ABDOMEN PAIN; PRN PAIN MEDICATION ADMINISTERED. PATIENT USES ORAL SUCTION NEEDED. TAKES MEDICATIONS WHOLE WITH ICE CHIPS. CONTINUES TO HAVE POOR APPETITE. DENIES CHEST PAIN, SOA, DIZZINESS, HEADACHE, NAUSEA OR VOMITING. FALL PRECAUTIONS IN PLACE, HOB AND EXTREMITIES ELEVATED.
[2021-05-29 16:15] VITALS: BP 106/65
[2021-05-29 19:24] VITALS: BP 137/68
[2021-05-30 04:10] VITALS: BP 119/68
[2021-05-30 06:04] LABS: ALBUMIN 2.6 g/dL (3.4-5.0); CALCIUM 8.2 mg/dL (8.5-10.1); CREATININE 6.3 mg/dL (0.6-1.0); PHOSPHORUS 6.2 mg/dL (2.5-4.9); POTASSIUM 3.7 mmol/L (3.5-5.1)
[2021-05-30 07:31] VITALS: BP 125/72
[2021-05-30 11:18] VITALS: BP 114/77
[2021-05-30 16:30] VITALS: BP 118/76
[2021-05-30 19:02] VITALS: BP 106/68
[2021-05-31 03:55] VITALS: BP 117/80
--- NOTE | 2021-05-31 05:48 | NUR ---
PT IS A&OX4 AND IS ABLE TO COMMUNICATE WANTS AND NEEDS TO NURSING STAFF. PT WITH 3+ PITTING EDEMA, GENERALIZED AND IN BLE. PT IS WEEPING FLUID AND IS PRESENTING WITH SEVERAL SMALL FLUID-FILLED BLISTERS. PT CONTINUES ON IV LASIX WITH SMALL URINARY OUTPUT - 150ML THIS SHIFT. ILEOSTOMY IS DRAINING LIQUID STOOL, MIDLINE INCISION CLOSED WITH KT, WELL APPROXIMATED. DRESSING WITH MODERATE SEROUS DRAINAGE, DRESSING CHANGED THIS SHIFT. WILL CONTINUE TO OBSERVE FOR CHANGES
[2021-05-31 07:04] LABS: ALBUMIN 2.6 g/dL (3.4-5.0); CALCIUM 8.3 mg/dL (8.5-10.1); CREATININE 6.3 mg/dL (0.6-1.0); PHOSPHORUS 6.1 mg/dL (2.5-4.9); POTASSIUM 3.5 mmol/L (3.5-5.1)
[2021-05-31 08:53] VITALS: BP 119/66
[2021-05-31 12:25] VITALS: BP 123/65
[2021-05-31 15:43] VITALS: BP 127/77
--- NOTE | 2021-05-31 18:34 | NUR ---
ASSESSMENT CHARTED - MEDS PER SEP - PT STARTED ON FENTANYL PATCH THIS EVENING. NALINI DIET AND FLUIDS. PT NPO FOR CT SCAN AT THE PRESENT TIME. ACCUCHECKS CHARTED - NO SSI COVEREAGE REQUIRED. SMALL URINE OUTPUT. PT AND DAUGHTER SEEN BY PALLATIVE CARE INSTRUCTOR [employer] SERVICES THIS SHIFT. PT TO CT AT THE PRESENT TIME VIA BED.
[2021-05-31 20:15] VITALS: BP 105/54
[2021-06-01 03:40] VITALS: BP 125/70
--- NOTE | 2021-06-01 04:41 | NUR ---
ASSUMED PT CARE AT 1900, PT IS ALERT AND ORIENTEDX4, DENIES PAIN STATING THAT THE FENTANYL PATCH HELPED, 3+ EDEMA ON BLE WITH WEEPING NOTED ON BILATERAL HIPS, SCANT DRAINAGE FROM THE INCISION, DRESSING CHANGED, REMAINS AFIB ON TELE, HR IN THE LOW 100S, LOW URINE OUPUT WITH 200 CC OF URINE THIS SHIFT, SANCHEZ INTACT, NO ACUTE DISTESS NOTED, VSS, WILL CONTINUE TO MONITOR PT PER POC
[2021-06-01 05:54] LABS: ALBUMIN 2.7 g/dL (3.4-5.0); CALCIUM 8.3 mg/dL (8.5-10.1); CREATININE 6.1 mg/dL (0.6-1.0); POTASSIUM 3.3 mmol/L (3.5-5.1)
[2021-06-01 08:46] VITALS: BP 116/65
--- NOTE | 2021-06-01 09:58 | NUR ---
PT REQUESTED WE PUT OT ON HOLD AT THIS TIME. SHE IS IN TOO MUCH PAIN AND DOES NOT WANT IT AT THIS TIME. IF PT CHANGES HER MIND, A NEW OT ORDER WOULD BE REQUESTED
[2021-06-01 12:00] VITALS: BP 130/62
--- NOTE | 2021-06-01 12:28 | NUR ---
Pt HERSELF REQUESTING HOLD ON PHYSICAL THERAPY SERVICES AT THIS TIME. REPORTS SHE HAS BEEN IN TOO MUCH PAIN. WILL PLACE Pt ON HOLD. WILL NEED NEW PT ORDER IF Pt CHANGES HER MIND OR BECOMES MORE APPROPRIATE FOR PT SERVICES. POOR PROGNOSIS PER MD NOTES OVERALL.
[2021-06-01 14:27] LABS: BF NUCLEATED CELLS 200 /mm3; BF RBC 898 /mm3
[2021-06-01 14:29] LABS: COLOR YELLOW; TOTAL VOLUME 60 mL
[2021-06-01 14:30] LABS: CLARITY CLEAR
[2021-06-01 16:12] VITALS: BP 110/57
--- NOTE | 2021-06-01 17:09 | NUR ---
dtr and patient met with pallative care. Dtr does not want hospice or pallative care at this time. Gave dtr [facility] skilled list to review. discussed [facility] is full and unable to accept. Dtr wants to review list. Patient with paracenthesis today. [facility] following.
--- NOTE | 2021-06-01 18:33 | NUR ---
PATIENT COMFORTABLE IN BED EATING DINNER. ASSESSMENTS AND MEDICATIONS COMPLETED. PARACENTESIS DONE TODAY ON THE LEFT LOWER ABD.
--- NOTE | 2021-06-01 19:12 | NUR ---
PT TO TRANSFERED TO [facility] VIA WHEELCHAIR VAN. REPORT CALLED TO FACILITY NO CO'S AT TIME OF D/C.
[2021-06-01 19:51] VITALS: BP 113/62
[2021-06-01 20:00] LABS: BF NEUTROPHILS 37 %; SOURCE ABDOMINAL FLUID
[2021-06-01 20:01] LABS: BF MACROPHAGE 0 %
[2021-06-02 04:01] VITALS: BP 109/66
--- NOTE | 2021-06-02 05:33 | NUR ---
PT WITH Q 2 HR TURNS AND REPOSITIONING, DIPAK STATES SHE IS IN PAIN BUT DENIES NEED FOR PAIN MED BETWEEN SCHEDULED DOSES, VSS REMAINS AFIB WITH RATE 90 TO LOW 100'S, SANCHEZ WITH LOW OUT PUT, ILIEOSTOMY WITH DARK LIQUID STOOL, LOWER EXT EDEMA,WEEPING,BLISTERS, PT/OT STOPPED YESTERDAY PT STATED IT WAS TOO PAINFUL, PT STATES PAIN IS BETTER WITH MS CONTIN, POOR APETITE LIKES WATER, ICE CHIPS, WILL CON'T TO MONITOR PER PPOC.
[2021-06-02 07:21] VITALS: BP 116/74
[2021-06-02 09:36] LABS: SOURCE ABDOMINAL
[2021-06-02 11:27] VITALS: BP 127/71
[2021-06-02 15:09] VITALS: BP 146/77
[2021-06-02 17:06] LABS: BODY FLUID ALBUMIN 1.2 g/dL (Not Estab.); BODY FLUID AMYLASE 113 U/L (()); BODY FLUID GLUCOSE 114 mg/dL (()); BODY FLUID LDH 242 IU/L (()); BODY FLUID PROTEIN 2.3 g/dL (())
--- NOTE | 2021-06-02 18:09 | NUR ---
SEE NURSING ASSESMENTS COMPLETED ON PATIENT. PATIENT HAD SOME FAMILY VISIT TODAY. A BIT SLOW TO AROUSE TODAY AND LITTLE APPETITE. PATIENT SAYS PAIN IS CONTROLLED TODAY.
[2021-06-02 20:01] VITALS: BP 140/75
[2021-06-03 03:58] VITALS: BP 137/66
[2021-06-03 06:59] LABS: HEMATOCRIT 22.6 % (37.0-47.0); HEMOGLOBIN 7.4 gm/dL (12.0-15.0); MCH 28.3 pg (26.0-34.0); MCHC 32.6 g/dL (28.0-37.0); RBC 2.6 mil/uL (4.20-5.00); RDW 16.2 % (10.5-14.5); WBC 10.9 thou/uL (4.0-11.0)
[2021-06-03 07:04] LABS: CALCIUM 8.5 mg/dL (8.5-10.1); CREATININE 5.9 mg/dL (0.6-1.0); POTASSIUM 4.4 mmol/L (3.5-5.1)
--- NOTE | 2021-06-03 07:08 | NUR ---
pt resting quietly in room, prn pain med given for abdominal pain, repositioned as needed and pt cries until you stop moving her, took am meds and then stated she didn't want any more, " I just need Armando to take me home" much reassurance given, will con't to monitor per ppoc.
[2021-06-03 07:23] VITALS: BP 140/77
[2021-06-03 11:09] VITALS: BP 148/83
[2021-06-03 15:18] VITALS: BP 116/76
[2021-06-03 19:23] VITALS: BP 144/80
[2021-06-04 00:45] VITALS: BP 119/64
--- NOTE | 2021-06-04 04:25 | NUR ---
RECEIVED PATIENT AT 1900H.ASSESSMENT CHARTED.ON NASAL CANNULA AT 1.5 LPM.WITH RIGHT JUGULAR CV LINE INTACT.WITH COLOSTOMY INTACT.WITH SANCHEZ CATHETER INTACT.ALL NEEDS ATTENDED.TO CONTINOUSLY MONITOR.
[2021-06-04 04:48] VITALS: BP 126/54
[2021-06-04 07:06] VITALS: BP 142/87
[2021-06-04 07:09] LABS: HEMATOCRIT 21.5 % (37.0-47.0); MCH 28.3 pg (26.0-34.0); MCHC 32.5 g/dL (28.0-37.0); MCV 87.3 fL (80.0-100.0); RBC 2.47 mil/uL (4.20-5.00); RDW 16.3 % (10.5-14.5); WBC 9.2 thou/uL (4.0-11.0)
[2021-06-04 07:22] LABS: CALCIUM 8.6 mg/dL (8.5-10.1); CREATININE 5.9 mg/dL (0.6-1.0); POTASSIUM 4.5 mmol/L (3.5-5.1)
[2021-06-04 11:14] VITALS: BP 150/79
--- NOTE | 2021-06-04 11:17 | NUR ---
WOUND CONSULT; AA STAGE 2 PRESSURE INJURY VS SKIN TEAT TO THE RIGHT GREATER TROCHATER/HIP WITH NO S/S OF INFECTION. THE RIGHT BUTTOCKS HAS A STAGE 2 PRESSURE INJURY. WOUND BED IS PINK, WITH NO ODOR OR S/S OF INFECTION, BUT I CANNOT R/O A SILENT INFECTION. RECCOMMENDATIONS; -AQUACEL, BORDER FOAM TO RIGHT HIP, CHANGE M/W/F PRN. -ZGUARD TO RIGHT BUTTOCKS BID/PRN. DISCUSSED WITH MIRA.
[2021-06-04 15:09] VITALS: BP 140/72
--- NOTE | 2021-06-04 17:05 | NUR ---
Pallative care Spoke with dtr and hospitalist sp with dtr. Discussed with dtr hospice house, locations and criteria. plan to contact Hospice in am for eval. Dtr wants to be present.
--- NOTE | 2021-06-04 18:01 | NUR ---
PATIENT ASSESMENTS COMPLETED. PATIENT REFUSING MANY ORAL MEDICATIONS. FENT PATCH D/C TODAY AND NARCAN GIVEN - PATIENT SCREAMING IN PAIN FOR "THE LORD TO TAKE ME HOME". DAUGHTER TALKED TO ABOUT HOSPICE OPTIONS AGAIN. MATTHEWU AT BEDSIDE TO TALK TO DAUGHTER.
[2021-06-04 20:22] VITALS: BP 131/71
[2021-06-05 03:58] VITALS: BP 124/88
--- NOTE | 2021-06-05 04:42 | NUR ---
RECEIVED PATIENT AT 1900H.ASSESSMENT CHARTED.MEDS PER SEP.ALL NEEDS ATTENDED.TO CONTINOUSLY MONITOR.
[2021-06-05 07:00] VITALS: BP 133/92
[2021-06-05 11:30] VITALS: BP 145/106
--- NOTE | 2021-06-05 13:08 | PATH ---
[facility] [address] [place] [address] PATHOLOGY RPT PROCEDURE Name: FRANCOIS SIMS Room #: [facility]- ADM IN M.R.#: [id number] Admission: 05/17/21 Date of : 47 Discharge: Report #: [id number] Path Case #: [id number] Note [facility] Accession Number: [id number] TESTS RESULT FLAG UNITS REF RANGE LAB Clinician Provided Cytology Information No. of containers..01 Other (Miscellaneous) Source: ABDOMEN FLUID DIAGNOSIS: ABDOMEN FLUID NEGATIVE FOR MALIGNANT CELLS. MESOTHELIAL CELLS ARE PRESENT. SCANT CELLULARITY. THIS INTERPRETATION INCLUDES EVALUATION OF A CELL BLOCK. COMMENT, SUGGEST CLINICAL CORRELATION Signed out by: 01 Josh Patel MD, Pathologist NPI- [id number] Performed by: Kassi Foss, English Composition Teacher ([facility]) Gross description: 01 15ML, CLOUDY, YELLOW /LCS 06/04/2021 1748 Local FLAG LEGEND: L-Low Normal,H-High Normal,LL-Alert Low,HH-Alert High <-Panic Low,>-Panic High,A-Abnormal,AA-Critical Abnormal Performed at: [address] [place] [address] Josh Patel MD, Specimen Comment: A courtesy copy of this report has been sent to [phone] Specimen Comment: Report sent to Performed at: [address], [place], [place] [id number] MD Josh Patel MD Phone: [phone]
--- NOTE | 2021-06-05 13:46 | NUR ---
[facility] evaled today. They met with patient, dtr and sp with RN. Report patient is appropriate for hospice house. Dtr needs to discuss with other family members.
[2021-06-05 15:00] VITALS: BP 143/50
--- NOTE | 2021-06-05 18:16 | NUR ---
PATIENT ASSESMENTS CHARTED. HOSPICE STOPPED BY AGAIN TO TALK WITH DAUGHTER - NO DECISIONS MADE. PAIN CONINUES TO BE AN INSSUE. PATIENT NOT EATING.
[2021-06-05 19:44] VITALS: BP 134/61
[2021-06-06 00:34] VITALS: BP 134/61
--- NOTE | 2021-06-06 02:58 | NUR ---
pt alert at start of shift moaning in pain. 12.5 mcg of fentanyl ordered q6hrs prn with last dose at 1700. vs temp 101.3, heart rate 127, respirations 20 and shallow, bp 134/61. 200 mg amiodarone given, with 650 mg tylenol for fever and 5 mg metoprolol ivp for tachycardia with no effect. the night progressed her heart rate increased and by 0000 it was spiking into the 140's to 160's. charge nurse had contacted [employer] and got an order for cardizem, but before it was given pt went into asystole and stopped breathing. pt was a dnr so no code called. mtn notified, Chantla HERNANDEZ notified. attempted to contact the family 4 times on 2 different phone numbers with no success. will continue to call. pronouncement completed by myself and Komal MEYERS.
--- NOTE | 2021-06-06 06:20 | NUR ---
pt daughter returned call at 450 am and her and father came into view body. left at 6am. body bagged and tagged and all belongings put in a personal item bag and tagged. security notified that pt was ready for pickup.
== END 2021-06-06 07:11 | DRG 853 ==
LOC: ER 17:42 → 2N 20:27 → ICU 20:27 → EROBS 20:27 → ICU 23:26 → 2N 05-19 18:11
PROVIDERS: Emergency Medicine; Hospitalist; Internal Medicine; Internal Medicine Nephrology; Nurse Practitioner Family; ADMIT Hospitalist; ATTEND Hospitalist
PROC: 0D1B0Z4 Bypass Ileum to Cutaneous, Open Approach (ICD-10-PCS; principal; 2021-05-17)
PROC: 0DTF0ZZ Resection of Right Large Intestine, Open Approach (ICD-10-PCS; principal; 2021-05-17)
PROC: 02HV33Z Insertion of Infusion Device into Superior Vena Cava, Percutaneous Approach (ICD-10-PCS; 2021-05-18)
PROC: 30233N1 Transfusion of Nonautologous Red Blood Cells into Peripheral Vein, Percutaneous Approach (ICD-10-PCS; 2021-05-28)
PROC: 0W9G3ZX Drainage of Peritoneal Cavity, Percutaneous Approach, Diagnostic (ICD-10-PCS; 2021-06-01)
DX: A41.9 Sepsis, unspecified organism (principal); E43 Unspecified severe protein-calorie malnutrition; K63.1 Perforation of intestine (nontraumatic); N17.0 Acute kidney failure with tubular necrosis; G92.8 Other toxic encephalopathy; N39.0 Urinary tract infection, site not specified; R18.8 Other ascites; I13.0 Hypertensive heart and chronic kidney disease with heart failure and stage 1 through stage 4 chronic kidney disease, or unspecified chronic kidney disease; C16.9 Malignant neoplasm of stomach, unspecified; I48.20 Chronic atrial fibrillation, unspecified; K74.60 Unspecified cirrhosis of liver; I50.9 Heart failure, unspecified; Z20.822 Contact with and (suspected) exposure to COVID-19; J44.9 Chronic obstructive pulmonary disease, unspecified; K66.8 Other specified disorders of peritoneum; E87.5 Hyperkalemia; G89.29 Other chronic pain; M54.9 Dorsalgia, unspecified; M19.90 Unspecified osteoarthritis, unspecified site; B19.20 Unspecified viral hepatitis C without hepatic coma; N18.30 Chronic kidney disease, stage 3 unspecified; Z66 Do not resuscitate; R53.81 Other malaise; I46.9 Cardiac arrest, cause unspecified; Z88.1 Allergy status to other antibiotic agents; I25.2 Old myocardial infarction; Z68.37 Body mass index [BMI] 37.0-37.9, adult
CPT/HCPCS: 10078; 10081; 10797; 50093; 50101; 50386; 50455; 51390; 51412; 51708; 56524; 56525; 56526; 56528; 57103; 62110; 62900; 65040